=== PATIENT | male | born 1985 | race Caucasian/White ===

== ENCOUNTER 2020-08-18 16:24 | Emergency (ER) | payer MEDICAID, SELFPAY ==
--- NOTE | 2020-08-18 16:19 | ECG_ITS ---
APPROVED REPORT Exam: Resting ECG HR:99 bpm ECG Measurements Heart Rate 99 AXES ID 150 P 28 QRSd 88 QRS 16 QT 356 T 21 QTc 456 Conclusion Normal sinus rhythm Incomplete RBBB Normal ECG Electronically signed by : Fredy Martinez, 08/20/2020 14:24:49
[2020-08-18 16:25] VITALS: BP 152/95; PULSE 104; RESP 18; TEMP 36.6; O2SAT 98; BMI 41.8
--- NOTE | 2020-08-18 16:26 | HMH.EDGENADL ---
ED Disposition Clinical Impression: Left against medical advice, Atypical chest pain Disposition: Left Against Medical Advice Condition on Discharge: Good Referrals: PCP,No [Primary Care Provider] - - Critical Care Critical Care Time: No Attestation: On , the high probability of a clinically significant, sudden or life threatening deterioration of the following system(s) required my full and direct attention, intervention and personal management. The time I documented below is in addition to time spent performing reported procedures but includes the following listed in this critical care notation. Medical Decision Making - Medical Records Medical records reviewed: Yes: I reviewed the patient's medical records. - Thierno Inquiry Pt receiving controlled substance: No Vital Signs: 08/18/20 16:25 08/18/20 16:46 Temperature 98 F 98 F Temperature Source Oral Oral Pulse Rate 104 H Pulse Rate [Radial] 104 H Respiratory Rate 18 20 Blood Pressure 156/92 H Blood Pressure [Right Arm] 152/95 H Blood Pressure Mean [Right Arm] 114 Blood Pressure Position Sitting Blood Pressure Position [Right Arm] Sitting 02 Sat by Pulse Oximetry 98 Oxygen Delivery Method Room Air Room Air - Lab Data Lab results reviewed: Yes: I reviewed the patient's lab results. Orders (Tests/Meds): ORDERS Category Date Time Status Chest XR 2 view (NOT portable) [XR chest 2V] Stat Exams 08/18/20 16:32 Ordered Basic Metabolic Panel Stat Lab 08/18/20 16:32 Ordered Complete Blood Count Auto Diff Stat Lab 08/18/20 16:32 Ordered Troponin I Stat Lab 08/18/20 16:32 Ordered - ECG Data Tracing #1 EKG interpreted by Abram Wilkinson MD: Rhythm: sinus Rate: 99 [place]: normal Ectopy: none Conduction: normal ST Segment Changes: none T Wave Changes: none Q Waves: none No evidence of acute ischemia or injury Normal electrocardiogram - MARJORIE Score for Non-Stemi Age of Patient: 30-39 years old Heart Rate: 90-109 bpm Systolic Blood Pressure: 140-159 mmHg CHF [place] Class: I-No CHF Other Risk Factors: None Medical Decision Narrative: Heart Pathway Score is: 1 Low Risk Recommended approach: Repeat troponin and if negative outpatient follow-up I recommended emergency department chest pain work-up including EKG, chest x-ray, blood work including initial and 3-hour troponin. Patient initially was agreeable. However apparently when x-ray came to take his x-ray he decided that he did not want to stay any longer in the emergency department or undergo any further work-up and signed out AGAINST MEDICAL ADVICE. General Adult HPI - General Chief complaint: Chest Pain Stated complaint: chest pain Time Seen by Provider: 08/18/20 16:27 - History of Present Illness HPI narrative: Patient states that he coughed this morning, says that he has a smoker's cough, and afterwards began having chest pain of his sternal area. He says it has persisted all day long but went away completely on the way over here and he is completely pain-free now. He says the pain has been worse for couple of hours, which is why he decided to come to the emergency room. He says the pain seemed to be worse when he would move around, and sometimes when he would take a breath. Denies any recent illness, no cough other than his usual smoker's cough, no fever, no hemoptysis. No recent travel, surgery, or hospitalization. He does not have any known coronary artery disease. He is a smoker. He does not have diabetes, hypertension, hyperlipidemia, or family history of coronary artery disease. - Related Data Home Medications Medication Instructions Recorded Confirmed No Known Home Medications 08/18/20 08/18/20 Allergies Allergy/AdvReac Type Severity Reaction Status Date / Time No Known Allergies Allergy Verified 10/30/19 16:38 [facility] History - Hepatitis A Screen Attestation statement:: This patient has been screened for Hepatitis A ri
--- NOTE | 2020-08-18 16:45 | PC.NURSE ---
PT STATES HE WOULD LIKE TO LEAVE. PT SIGNED AMA
[2020-08-18 16:46] VITALS: BP 156/92; PULSE 104; RESP 20; TEMP 36.6; O2SAT 98
--- NOTE | 2020-08-18 23:03 | PC.NURSE ---
spoke with edwin; she was concerned she had a missed call from the hospital number; advised it wasn't the current er staff, and advised patient if she needed anything further, we would welcome the patient back to the ed if he needed us. very appreciative and advised patient was ok .
== END 2020-08-18 16:50 | disposition left against medical advice (07) ==
PROVIDERS: Emergency Provider Emergency Medicine; PCP Nurse Practitioner Family
DX: R07.89 Other chest pain (principal); F17.210 Nicotine dependence, cigarettes, uncomplicated
CPT/HCPCS: 93005; 99281

== ENCOUNTER 2024-10-01 13:10 | Inpatient (IN) | payer MEDICAID, SELFPAY ==
[2024-10-01] VITALS (10 sets, daily range): BP systolic 139–167; BP diastolic 57–77; PULSE 108–131; RESP 16–18; TEMP 36.6–37.1; O2SAT 95–99; BMI 57.6; BMI 56.2
--- NOTE | 2024-10-01 13:45 | XR_ITS ---
PROCEDURE INFORMATION: Exam: XR Chest Exam date and time: 10/01/2024 1:59 PM Age: 38 years old Clinical indication: Shortness of breath; Additional info: Dyspnea TECHNIQUE: Imaging protocol: Radiologic exam of the chest. Views: 1 view. COMPARISON: No relevant prior studies available. FINDINGS: Lungs: No evidence of focal airspace consolidation, noting low lung volumes limits evaluation of the lung bases. No pulmonary edema. Pleural spaces: No visible pleural effusion. No pneumothorax. Heart/Mediastinum: Cardiomediastinal silouhette is within normal limits. Bones/joints: No evidence of acute osseous abnormality. IMPRESSION: No evidence of acute cardiopulmonary disease.
--- NOTE | 2024-10-01 13:55 | ECG_ITS ---
APPROVED REPORT Exam: Resting ECG HR:125 bpm ECG Measurements Heart Rate 125 AXES QRSd 101 QRS 56 QT 344 T 46 QTc 418 Conclusion SUPRAVENTRICULAR TACHYCARDIA LOW QRS VOLTAGE IN PRECORDIAL LEADS [QRS DEFLECTION < 1.0 mV IN CHEST LEADS] POSSIBLE INFERIOR MYOCARDIAL INFARCTION , OF INDETERMINATE AGE [30 ms Q WAVE IN II/aVF] ABNORMAL ECG UNCONFIRMED REPORT Electronically signed by : ADELINA DEMPSEY, 10/02/2024 23:11:44
[2024-10-01 14:01] LABS: Basophils % 0.6 % (0.1-2.0); Eosinophils # 0.1 K/mm3 (0.0-0.4); Eosinophils % 1.4 % (0.1-12.0); Hematocrit 37.2 % (42.0-52.0); Hemoglobin 12.7 g/dL (14.1-18.0); Lymphocytes # 1.7 K/mm3 (0.7-4.5); Mean Corpuscular HGB Conc 34.2 g/dL (31.8-35.4); Mean Corpuscular Hemoglobin 34.3 pg (27.0-31.2); Mean Corpuscular Volume 100.3 fl (80-94); Mean Platelet Volume 9.4 fl (7.4-10.4); Monocytes # 0.5 K/mm3 (0.1-1.0); Neutrophils # 3.5 K/mm3 (1.8-7.8); Platelet Count 93 K/mm3 (142-424); Red Cell Distribution Width 16.7 % (11.5-17.5); White Blood Count 5.8 K/mm3 (4.8-10.8)
--- NOTE | 2024-10-01 14:06 | ED_ITS ---
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 by RN): Patient reports seeing his PCP at [facility] yesterday for increased fluid in his legs, hands and abdomen. States she recommended he come to the ER yesterday but stated they couldn't come until today. Does report increased shortness of breath. Denies any other symptoms. History of Present Illness HPI narrative: Patient is a 38-year-old male presenting today with I am all swelled up. He has a history of chronic hepatitis C which was diagnosed a decade ago after injection drug use but has been clean for nearly a decade and has been told in the past that he was not a candidate for hep C treatment therefore he has not been treated and is chronically viremic to his knowledge. He is never been diagnosed with liver disease heart failure heart disease kidney disease etc. States that he believes that he is up 75 pounds from 350 pounds to 425 pounds. Related Data Home Medications ?Medication ?Instructions ?Recorded ?Confirmed No Known Home Medications 08/18/20 08/18/20 Allergies Allergy/AdvReac Type Severity Reaction Status Date / Time No Known Allergies Allergy Verified 10/30/19 16:38 [facility] Disclaimer: The information contained in this section may have been updated after the patient was seen, as this information can be updated by other users. Social History Smoking Status: Current every day smoker tobacco type: cigarettes packs per day: 2 alcohol intake: never current occupational status: other household members: other housing: other Other Medical History Have you received the Flu Vaccine for this season: No Have you received the Pneumonia Vaccine: No ROS Obtained: Yes All systems reviewed & no additional complaints except as documented Physical Exam General General appearance: alert and in no apparent distress Respiratory Respiratory exam: Present other (Diminished breath sounds) Cardiovascular Cardiovascular exam: Present tachycardia Abdominal Exam Abdominal exam: Present distention (Morbidly obese severely distended abdomen with abdominal wall edema) Extremities Exam Extremities exam: Present other (Diffuse whole body wall edema in the presacral region abdominal wall extremities etc.) Neurological Exam Neurological exam: Present alert and oriented X3 Medical Decision Making Medical Records Screening: Per USPSTF and CDC recommendations, given the prevalence of disease in our region, it is our hospital?s policy to screen for HIV and viral Hepatitis for all patients aged 18 and over and those with ongoing risk factors. Thierno Inquiry Pt receiving controlled substance: No Vital Signs: 10/01/24 13:11 10/01/24 13:45 Temperature 98.2 F Temperature Source Oral Pulse Rate 131 H Pulse Rate [Radial] 125 H Respiratory Rate 18 Blood Pressure [Right Arm] 167/70 H Blood Pressure Mean [Right Arm] 102 Blood Pressure Source [Right Arm] Automatic Cuff Blood Pressure Position [Right Arm] Sitting 02 Sat by Pulse Oximetry 96 96 Oxygen Delivery Method Room Air Room Air Lab Data Lab results reviewed: Yes I reviewed the patient's lab results. Lab Results 10/01/24 13:40: WBC 5.8, RBC 3.70 L, Hgb 12.7 L, Hct 37.2 L, MCV 100.3 H, MCH 34.3 H, MCHC 34.2, RDW 16.7, Plt Count 93 L, MPV 9.4, Neut % (Auto) 60.0, Lymph % (Auto) 29.0, [place] % (Auto) 9.0, Eos % (Auto) 1.4, Baso % (Auto) 0.6, Neut # (Auto) 3.5, Lymph # (Auto) 1.7, [place] # (Auto) 0.5, Eos # (Auto) 0.1, Baso # (Auto) 0.0, NT-Pro-B Natriuret Pep 54.8 10/01/24 14:04: PT 17.3 H, INR 1.62 H, Sodium 131 L, Potassium 3.2 L, Chloride 93 L, Carbon Dioxide 34 H, Anion Gap 7.2, BUN 6 L, Creatinine 0.70, Estimated Creat Clear 156, Estimated GFR 126, Est GFR ( Amer) 152, Glucose 113 H, C alcium 7.9 L, Total Bilirubin 4.1 H, AST 165 H, ALT 52, Alkaline Phosphatase 251 H, Troponin I 0.02, Total Protein 7.2, Albumin 2.5 L, Globulin 4.7 H, A lbumin/Globulin Ratio 0.5 L, TSH 3.72 10/01/24 13:40 10/01/24 14:04 Orders (Tests/Meds): ED MEDICATIONS Generic Name Dose Route Start Last Admin Trade Name Freq PRN Reason Stop Dose Admin Bumetanide 10 mg/ Sodium 100 mls @ 5 mls/hr 10/01/24 15:16 Chloride IV 10/31/24 15:15 .Q20H CECE Discontinued Medications Generic Name Dose Route Start Last Admin Trade Name Freq PRN Reason Stop Dose Admin Bumetanide 2 mg 10/01/24 15:15 Bumetanide 1mg/4ml Vial IV 10/01/24 15:16 ONCE ONE ORDERS Category Date Time Status Consult Appellate Conferee [CONS] Routine Cons 10/01/24 14:30 Active CXR --portable [XR chest portable] Stat Exams 10/01/24 13:45 Completed POCUS Point of Care (ER Only) Stat Exams 10/01/24 14:04 Completed BNP [NT Pro Brain Natriuretic Pep.] Stat Lab 10/01/24 13:40 Completed CBC w/Auto Diff [Complete Blood Count Auto Diff] Stat Lab 10/01/24 13:40 Completed CMP [Comprehensive Metabolic Panel] Stat Lab 10/01/24 14:04 Completed Complete Blood Count Auto Diff AMLAB Lab 10/02/24 06:00 Ordered Comprehensive Metabolic Panel AMLAB Lab 10/02/24 06:00 Ordered HCV RNA PCR, Quant Stat Lab 10/01/24 14:04 Received HIV (1&2) Antibody Rapid Stat Lab 10/01/24 14:04 Received Lipid Panel AMLAB Lab 10/02/24 06:00 Ordered Magnesium AMLAB Lab 10/02/24 06:00 Ordered PT INR [Prothrombin Time INR] Stat Lab 10/01/24 14:04 Completed TSH [Thyroid Stimulating Hormone] Stat Lab 10/01/24 14:04 Completed Trop I [Troponin I] Stat Lab 10/01/24 14:04 Completed Troponin I Q3H Lab 10/01/24 17:00 Ordered Troponin I Q3H Lab 10/01/24 20:00 Ordered UA [Urinalysis and Microscopic] Stat Lab 10/01/24 13:46 Ordered Medical Decision Narrative: Patient is a morbidly obese 38-year-old male with a history of chronic hepatitis C that was never treated presenting today with whole body edema highly concerning for decompensated cirrhosis. Other things in the differential would be protein-losing enteropathy nephrotic syndrome kidney disease heart failure etc. Workup is pending bedside ultrasound did in fact demonstrate that he has cirrhosis. Reassessment 239 patient has an albumin of 2.5 and INR 1.6 consistent with synthetic dysfunction of the liver in addition to AST is 165 and platelets are 93 he has a fib 4 score of 9.6 in the setting of ascites and anasarca this is all consistent with a new diagnosis of decompensated cirrhosis likely secondary hepatitis C. I will discuss the case with our consulting it architect to see if he is comfortable keeping the patient here. Primarily from an acute standpoint patient has significant volume overloaded state but will be tenuous from a diuretic standpoint and require intensive monitoring regarding his kidneys etc thus requiring hospitalization. He remains tachycardic. After my discussion with Dr. Kramer I will make a disposition decision to keep the patient here at [facility] or transfer the patient. I spoke with Dr. Kramer our consulting it architect who is comfortable keeping the patient here is immediately available for a phone call if our hospital medicine doctor is comfortable keeping the patient here. I subsequently spoke with Dr. Gomez awaiting a callback. No evidence of SBP from a clinical standpoint or evidence of upper GI bleed. Dr. Kramer did request if possible to get imaging of the patient's belly to see to what extent he has portal hypertension and/or to see if he has hepatocellular carcinoma. Dr. Gomez returned my call and we will keep the patient here for further evaluation and management Dr. Kramer is immediately available and is aware of this patient being admitted as well and will closely follow along. Procedures Miscellaneous Procedure Procedure Performed: Limited abdominal ultrasound Indication whole body wall edema history of hepatitis C evaluating for possible ascites Findings there is extensive abdominal wall edema as well as ascites noted Interpretation patient does have evidence of ascites which is nonspecific but in the setting of hepatitis C is likely from decompensated cirrhosis Images were saved Critical Care Critical Care Time Critical Care Time: Yes Attestation: On 10/01/24, the high probability of a clinically significant, sudden or life threatening deterioration of the following system(s) required my full and direct attention, intervention and personal management. The time I documented below is in addition to time spent performing reported procedures but includes the following listed in this critical care notation. Total Time Total Critical Care Time: 35
[2024-10-01 14:17] LABS: NT Pro Brain Natriuretic Pep. 54.8 pg/mL (0-125)
[2024-10-01 14:21] LABS: INR 1.62 (0.9-1.1); Prothrombin Time 17.3 seconds (10.1-12.5)
[2024-10-01 14:23] LABS: Albumin Level 2.5 g/dl (3.5-5.0); Chloride 93 mmol/L (98-107); Potassium 3.2 mmoL/L (3.5-5.1); Sodium 131 mmol/L (136-145)
[2024-10-01 14:25] LABS: Blood Urea Nitrogen 6 mg/dl (9-20); Creatinine Clearance Estimated 156 mL/min (50-200); Estimated Glomerular Filt Rate 126 ml/min (>60); GFR (African American) 152 ML/MIN (>60)
[2024-10-01 14:26] LABS: Alanine Aminotransferase 52 U/L (12-78); Albumin/Globulin Ratio 0.5 (1.1-1.8); Alkaline Phosphatase 251 U/L (38-126); Anion Gap 7.2 mEq/L (5-15); Aspartate Amino Transferase 165 U/L (17-59); Bilirubin,Total 4.1 mg/dl (0.2-1.3); Calcium 7.9 mg/dl (8.4-10.2); Carbon Dioxide 34 mmol/L (22.0-30.0); Globulin 4.7 g/dL (1.3-3.2); Glucose 113 mg/dl (74-100); Total Protein,Serum 7.2 g/dl (6.3-8.2)
[2024-10-01 14:37] LABS: Troponin I 0.02 ng/ml (0.00-0.034)
[2024-10-01 14:56] LABS: Thyroid Stimulating Hormone 3.72 uIU/mL (0.465-4.68)
--- NOTE | 2024-10-01 15:17 | P.HP_ITS ---
History of Present Illness *Admission Date: 10/01/24 *Reason for visit:: Abdominal swelling and edema *History of present illness: Mr. Justice is a 38-year-old male with longstanding history of hepatitis C for approximately 10 years. He is untreated. He presented today to the ER due to worsening swelling in his legs and abdomen. States has been having increased swelling over the past 1 to 2 months. He had swelling in his ankles for years but not to the point that it is at at this time. Over the past 1 to 2 months he has gained a little over 70 pounds of fluid per his report. States he short of breath with exertion. Denies any chest pain, nausea, confusion, diarrhea. Urinating at baseline. Having daily bowel movements. Reports history of IV drug use, last used 11 years ago. Has been on Suboxone legitimately and illicitly. Most recently due to loss of insurance, has been buying Suboxone off the street taking 4 to 8 mg daily. Denies any illicit drugs. Smokes a pack a day. Drinks a few times a week. On workup in the ER, found to be in decompensated cirrhosis with significant edema, elevated INR. Medicine and GI consulted for admission and further management. On arrival to the floor, patient is sitting upright in bedside chair. In no acute distress. Morbidly obese. Significant edema on exam up to abdomen. Afebrile. Alert and oriented x 4. [facility] Disclaimer: The information contained in this section may have been updated after the patient was seen, as this information can be updated by other users. Medical History Inguinal hernia Family History Other Family history of diabetes mellitus type II Social History Smoking Status: Current every day smoker tobacco type: cigarettes packs per day: 2 alcohol intake: never current occupational status: other Travel in the last 8 weeks: None household members: other housing: other Other Medical History Have you received the Flu Vaccine for this season: No Have you received the Pneumonia Vaccine: No Review of Systems Review of Systems Review of systems (narrative): 14 point review of systems performed, pertinent positives and negatives as per HPI Meds Home Medications and Allergies Home Medications ?Medication ?Instructions ?Recorded ?Confirmed ?Type No Known Home Medications 08/18/20 10/01/24 History New Prescriptions to Start Prescriptions: Allergies Allergy/AdvReac Type Severity Reaction Status Date / Time No Known Allergies Allergy Verified 10/30/19 16:38 Exam Data for Last 24 hours Vital signs and Labs for Last 24 Hours: Temp Pulse Resp BP Pulse Ox O2 Del Method 98.2 F 131 H 18 167/70 H 96 Room Air 10/01/24 13:11 10/01/24 13:45 10/01/24 13:11 10/01/24 13:11 10/01/24 13:45 10/01/24 13:45 Laboratory Results - last 24 hr 10/01/24 13:40: WBC 5.8, RBC 3.70 L, Hgb 12.7 L, Hct 37.2 L, MCV 100.3 H, MCH 34.3 H, MCHC 34.2, RDW 16.7, Plt Count 93 L, MPV 9.4, Neut % (Auto) 60.0, Lymph % (Auto) 29.0, [place] % (Auto) 9.0, Eos % (Auto) 1.4, Baso % (Auto) 0.6, Neut # (Auto) 3.5, Lymph # (Auto) 1.7, [place] # (Auto) 0.5, Eos # (Auto) 0.1, Baso # (Auto) 0.0, NT-Pro-B Natriuret Pep 54.8 10/01/24 14:04: PT 17.3 H, INR 1.62 H, Sodium 131 L, Potassium 3.2 L, Chloride 93 L, Carbon Dioxide 34 H, Anion Gap 7.2, BUN 6 L, Creatinine 0.70, Estimated Creat Clear 156, Estimated GFR 126, Est GFR ( Amer) 152, Glucose 113 H, Calcium 7.9 L, Total Bilirubin 4.1 H, AST 165 H, ALT 52, Alkaline Phosphatase 251 H, Troponin I 0.02, Total Protein 7.2, Albumin 2.5 L, Globulin 4.7 H, Albumin/Globulin Ratio 0.5 L, TSH 3.72 I & O for Last 24 hours: Intake & Output 09/28/24 09/29/24 09/30/24 10/01/24 23:59 23:59 23:59 23:59 Weight 192.777 kg Constitutional Constitutional: no acute distress, morbidly obese, chronically ill appearing and cooperative *Routine HEENT Exam Head: Present normocephalic Eye: Present EOMI and PERRL ENT: Present mucous membranes moist *Routine Neck Exam Neck: Present supple; Absent lymphadenopathy *Routine Respiratory Exam Respiratory: Present CTA bilaterally, crackles (Fine crackles in bases) and distant breath sounds; Absent respiratory distress, rhonchi or wheezes *Routine Cardiovascular Exam Cardiovascular: Present tachycardia Comments: Tachycardic, regular rhythm *Routine Abdominal Exam Abdominal: Present soft, normoactive bowel sounds and firm; Absent tenderness, rebound or guarding Comments: Distended abdomen, 2+ edema and abdominal wall *Routine Rectal Exam Rectal:: deferred *Routine Genitalia Exam Genitalia:: deferred *Routine Extremities Exam Extremities: Present edema (3+ edema through thighs up to abdomen); Absent cyanosis or clubbing *Routine Skin Exam Skin: Present intact and warm; Absent cyanosis, wounds or rash *Routine Neurological Exam Neurological: Present alert, oriented X3 and moving all extremities; Absent altered mental status or asterixis Assessment and Plan *Assessment and plan (1) 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): Status: Acute Category: Medical Code(s): B19.20 - Unspecified viral hepatitis C without hepatic coma; K74.69 - Other cirrhosis of liver (2) Tachycardia: Status: Acute Category: Medical Code(s): R00.0 - Tachycardia, unspecified (3) Chronic hepatitis C virus infection: Status: Acute Category: Medical Code(s): B18.2 - Chronic viral hepatitis C (4) Anasarca: Status: Acute Category: Medical Code(s): R60.1 - Generalized edema (5) Thrombocytopenia: Status: Acute Category: Medical Code(s): D69.6 - Thrombocytopenia, unspecified (6) Opioid use disorder: Status: Acute Category: Medical Code(s): F11.90 - Opioid use, unspecified, uncomplicated (7) Morbid obesity with BMI of 50.0-59.9, adult: Status: Acute Category: Medical Code(s): E66.01 - Morbid (severe) obesity due to excess calories; Z68.43 - Body mass index [BMI] 50.0-59.9, adult (8) Tobacco use disorder: Status: Acute Category: Medical Code(s): F17.200 - Nicotine dependence, unspecified, uncomplicated Plan 38-year-old male with decompensated cirrhosis. Presents with anasarca and dyspnea. Workup in the ER concerning for volume overload. Discussed case with ER physician, request admission for diuresis and further management of his cirrhosis. I agreed to admit. GI consulted. Discussed case, will aggressively diurese. Evaluate for initiation of treatment for his hepatitis C. Necessitating inpatient management. Anticipate admission greater than 2 midnights. Problems addressed as follows. Decompensated cirrhosis Hepatitis C Anasarca Thrombocytopenia -MELD 17, FIB4 = 9.6, INR 1.6. - Platelets 93; mild electrolyte disturbances with sodium 131, potassium 3.2, chloride 93. Kidney function normal with BUN 6, creatinine 0.7. -Bilirubin 4.1, AST 165, ALT 52, alk phos 251. Albumin low at 2.5. -Findings consistent with decompensated cirrhosis. Aggressive diuresis. Initiate spironolactone 100 mg daily. Bumex 2 mg once on admission, has already put out 1 L. Will continue 1 mg IV daily. -Aggressive replacement of electrolytes during diuresis. Electrolyte replacement protocol ordered -Repeat CBC, CMP, magnesium ordered for the morning -Blood pressure elevated at 140-160 systolic. Tachycardic 120-130. Appears to be sinus tach. Concern for secondary to withdrawal versus volume overload status. Will evaluate need for beta-dionicio initiation in the morning -Strict ins and outs -GI consulted, discussed case on admission. Diuresis as above. Will need to initiate treatment for hepatitis C, consider prior to discharge home. Address decompensation first. -Ammonia, AFP, hep C RNA pending -Will proceed with imaging this weekend of abdomen including CT of abdomen to evaluate liver architecture and for varices. -Phytonadione 10 mg once for coagulopathy, repeat INR in the morning Opioid use disorder: Reports history of IV drug use. Has not used in 11 years. Off and on Suboxone. Having mild withdrawal symptoms with tachycardia. Last used Suboxone yesterday with 1/2 tablet. Will initiate 8 mg / 2 mg Suboxone daily. Monitor for improvement in symptoms. Peers port specialist can. Anticipate referral to outpatient treatment at discharge Morbid obesity complicates all aspects of his care Tobacco use disorder: Nicotine patch 21 mg daily Full code Regular diet Holding anticoagulation in the setting of thrombocytopenia
--- NOTE | 2024-10-01 15:28 | PC.NURSE ---
HS aware of admission
[2024-10-01] MEDS: BUMETANIDE 1MG/4ML VIAL 2 MG IV (15:29)
[2024-10-01 15:31] LABS: Microscopic, Urine URINE MICROSCOPIC (MICROSCOPIC)
[2024-10-01 15:36] LABS: Appearance,Urine CLEAR (Clear); Blood, Urine 3+ (Negative); Color,Urine YELLOW (Yellow); Glucose,Urine (UA) Negative (Negative); Ketones,Urine Negative (Negative); Leukocyte Esterase,Urine Negative (Negative); Nitrate,Urine Negative (Negative); Protein,Urine Negative (Negative)
[2024-10-01 15:44] LABS: Bilirubin,Urine Negative (Negative)
[2024-10-01] MEDS: BUMETANIDE 10 MG in 0.9 % SODIUM CHLORIDE 60 ML 5 MG IV (15:49)
--- NOTE | 2024-10-01 15:54 | PC.NURSE ---
Report called to NIKIA Mullins on Med Surg.
[2024-10-01 15:57] LABS: Bacteria,Urine 1+ /lpf; RBC,Urine TNTC #/hpf (0-3); WBC,Urine Occasional #/hpf (0-3)
--- NOTE | 2024-10-01 16:02 | PC.NURSE ---
pt to 2nd floor with RN via wheelchair
--- NOTE | 2024-10-01 16:05 | PC.NURSE ---
arrived by w/c from ED
--- OUTSIDE RECORDS SUMMARY | 2024-10-01 16:15 | XMS_ITS | Continuity of Care Document ---
Author Organization [place] [facility] [employer] Address [address] [place] [address] Assessment Encounter Date Assessment Date Assessment LastModified by Organization Details LastModified Time 09/30/2024 09/30/2024 Instructed patient to go to ER for further evaluation of significant complaints and abnormal PE findings. He needs immediate work-up. He states he will go. Follow up in clinic subsequently. We will address concerns including BP, hep C, etc. at follow up. We may also consider MAT program if patient is agreeable. Not available 10/01/2024 10:14:24 Plan of Treatment Reminders Order Date Submit Date Provider Last Modified By Organization Details Last Modified Time Details Appointments None record ed. Lab None record ed. Referral None record ed. Procedures None record ed. Surgeries None record ed. Imaging None record ed. Medication Orders None record ed. Patient TargetsNo targets recorded. Patient Instructions Encounter Date Encounter Id Patient Instructions Last Modified By Organization Details Last Modified Time 09/30/2024 [id number] body mass index: care instructions Not available 10/01/2024 10:13:41 learning about healthy weight Not available 10/01/2024 10:13:41 jaundice: care instructions Not available 10/01/2024 10:13:41 Reason for Referral None Reported. Results Created Date Observation Date Name Description Value Unit Range Abnormal Flag Note LastModifiedBy Organization Detail LastModifiedTime 10/01/2010/01/2024 imagi ng/di avisos tic resul t No observ ation record ed. [email or web address] [facility] [address], [place], [address], 10/01/2024 15:27:38 Result Notes None recorded. Problems Name Problem SNOMED Code Status Onset Date Resolution Date Notes Provider Name and Address Organization Details Recorded Time 3+ pitting edema 113209380 Active 2023 DERRELL LAKE NP [address] [place] [address], [address] [place] [address] , [employer] 4 10:11:10 Dyspnea 402300540 Active 2023 DERRELL LAKE NP [address] [place] [address], [address] [place] [address] , [facility] [employer] 4 10:11:15 Elevated blood-press ure reading without diagnosis of hypertensio n 731767141 Active 2023 DERRELL LAKE NP [address] [place] [address], [address] [place] [address] , [facility] 4 10:11:21 Jaundice 87437614 Active 2023 DERRELL LAKE NP [address] [place] [address], [address] [place] [address] , [facility] 4 10:11:28 Abnormal weight gain 894772772 Active 2023 DERRELL LAKE NP [address] [place] [address], [address] [place] [address] , [employer] 4 10:12:13 Opioid dependence in remission 877480869 Active 2023 DERRELL LAKE NP [address] [place] [address], [address] [place] [address] , [employer] 4 10:14:04 Viral hepatitis C 00985127 Active 2019 Problem Code: B19.20; Problem Code Type: ICD-10; Not Available [facility] 2 21:14:20 Nicotine dependence 85683230 Active 2019 Problem Code: F17.200; Problem Code Type: ICD-10; Not Available [facility] 2 21:14:20 Psychoactiv e substance dependence 0707214 Active 2019 Problem Code: F19.21; Problem Code Type: ICD-10; Not Available [facility] 2 21:14:20 Body mass index 40+ - severely obese 832519503 Active 2019 Not Available [facility] 2 21:14:20 Problem Notes None recorded. Procedures Surgical History Date Name Laterality Status Provider Name and Address Organization Details Recorded Time 0 hernia repair completed Not Available [facility] 07/16/2022 22:56:33 Imaging Results None recorded. Procedure Notes None recorded. Medical Equipment None Reported. Allergies No known drug allergies Medications Name Sig Start Date Stop Date Status Note LastModified by Organization Details LastModified Time buprenorphi ne 8 mg-naloxone [address] 3/4 TABLET UNDER THE TONGUE AND ALLOW TO DISSOLVE 1 TIME EACH DAY. 09/30 completed Not Available Not Available Not Available Suboxone 09/30 completed Not Available Not Available Not Available Vitals Date Recorded Body height Body mass index (BMI) Body weight Heart rate Oxygen saturation Oxygen saturation in Arterial blood by Pulse oximetry Systolic blood pressure Diastolic blood pressure Systolic blood pressure Diastolic blood pressure Systolic blood pressure Diastolic blood pressure Provider Name and Address Organization Details Last Updated DateTime 4 182.88 cm 57.7 kg/m2 516725. 86 g 129 /min 95 % 95 % 153 mm[Hg] 88 mm[Hg] 157 mm[Hg] 81 mm[Hg] 148 mm[Hg] 80 mm[Hg] Skyestephanie Rossi [facility], [facility]. 4 15:53:33 Social History Question Answer Notes LastModified by Organizat ion Details LastModified Time Tobacco Smoking Status Current Every Day Smoker SocialHist oryQuestio n: 'Tobacco/A lcohol/Sup plements'; SocialHist oryRespons e: 'Current tobacco smoker (CAD, CAP, COPD, PV)1 (DM)4'; Not Available [facility] 07/16/2022 22:55:42 Do You Have An Advance Directive? No Information not available 09/30/2024 Is Your Home Air Conditioned? Yes [email or web address] Information not available 09/30/2024 What Is Your Level Of Alcohol Consumption? Occasional [email or web address] Information not available 09/30/2024 How Many Years Have You Consumed Alcohol? 2 [email or web address] Information not available 09/30/2024 Do You Wear A Helmet When Biking? Yes Information not available 09/30/2024 Are You Blind Or Do You Have Difficulty Seeing? No [email or web address] Information not available 09/30/2024 Are You Or Have You Been Involved With Bullying? No Information not available 09/30/2024 What Is Your Level Of Caffeine Consumption? Occasional [email or web address] Information not available 09/30/2024 In The 14 Days Before Symptom Onset, Have You Had Close Contact With A Laboratory-confir med COVID-19 While That Case Was Ill? No [email or web address] Information not available 09/30/2024 In The 14 Days Before Symptom Onset, Have You Had Close Contact With A Person Who Is Under Investigation For COVID-19 While That Person Was Ill? No Information not available 09/30/2024 Have You Been To An Area Known To Be High Risk For COVID-19? No [email or web address] Information not available 09/30/2024 Are You Currently Employed? No Information not available 09/30/2024 Are You Deaf Or Do You Have Serious Difficulty Hearing? No [email or web address] Information not available 09/30/2024 What Type Of Diet Are You Following? REGULAR [email or web address] Information not available 09/30/2024 How Many Days Of Moderate To Strenuous Exercise, Like A Brisk Walk, Did You Do In The Last 7 Days? 0 [email or web address] Information not available 09/30/2024 Have There Been Any Changes To Your Family Or Social Situation? No Information no t available 09/30/2024 Are There Any Guns Present In Your Home? No [email or web address] Information not available 09/30/2024 Which Of Your Hands Is Dominant? Right Information not available 09/30/2024 What Is Your Home Situation? Other Information not available 09/30/2024 Do You Have A Medical Power Of Enrollment Nurse? No Information not available 09/30/2024 What Was The Date Of Your Most Recent Tobacco Screening? 09/30/2024 Information not available 09/30/2024 Do You Have Any Pets? Yes Information not available 09/30/2024 What Is Your Relationship Status? Single [email or web address] Information not available 09/30/2024 Have You Repeated Any Grades? Yes [email or web address] Information not available 09/30/2024 Do You Use Your Seat Belt Or Car Seat Routinely? Yes Information not available 09/30/2024 Are You Sexually Active? No [email or web address] Information not available 09/30/2024 Do You Have Any Siblings? No [email or web address] Information not available 09/30/2024 Do You Have Smoke And Carbon Monoxide Detectors In Your Home? Yes [email or web address] Information not available 09/30/2024 Are You Passively Exposed To Smoke? Yes [email or web address] Information no t available 09/30/2024 Are There Any Smokers In Your House? No [email or web address] Information not available 09/30/2024 How Much Tobacco Do You Smoke? 0.5 PPD [email or web address] Information not available 09/30/2024 Do You Participate In Social [email or web address]? Yes Information not available 09/30/2024 Do You Feel Stressed (tense, Restless, Nervous, Or Anxious, Or Unable To Sleep At Night)? CA4947-5 [email or web address] Information not available 09/30/2024 Do You Use Any Illicit Or Recreational Drugs? No [email or web address] Information not available 09/30/2024 Do You Use Sunscreen Routinely? No [email or web address] Information not available 09/30/2024 Has Tobacco Cessation Counseling Been Provided? No Information not available 09/30/2024 Have You Recently Traveled Abroad? No Information not available 09/30/2024 Are You Currently In School? No [email or web address] Information not available 09/30/2024 Do You Have Any Dietary Restrictions? No [email or web address] Information not available 09/30/2024 Do You Or Have You Ever Used Any Other Forms Of Tobacco Or Nicotine? No Information not available 09/30/2024 Sex: Male Functional Status Question Answer Note LastModified by Organizat ion Details LastModified Time Do you have difficulty walking or climbing stairs? No [email or web address] Information not available 09/30/2024 Do you have transportation difficulties? No [email or web address] Information not available 09/30/2024 Are you able to walk? YESWOREST [email or web address] Information not available 09/30/2024 Do you have difficulty doing errands alone? No [email or web address] Information not available 09/30/2024 Are you able to care for yourself? Yes [email or web address] Information n ot available 09/30/2024 Do you have difficulty dressing or bathing? No [email or web address] Information not available 09/30/2024 What is your exercise level? Occasional Information not available 09/30/2024 Mental Status Question Answer Note LastModified by Organization D etails LastModified Time Do you have difficulty concentrating, remembering or making decisions? No [email or web address] Information no t available 09/30/2024 Family History Nothing Reported Notes:*Procedure Description : Documented family medical history in mother*Relative: Mother *Procedure Description: Documented family medical history in father*Relative: Father *Procedure Description: Family medical history unremarkable*Relative: Unspecified Relation *Problem: Relative: ''; Medical History Condition Response Hospitalizations N Hepatitis Y Acid Reflux (GERD) Y Emergency room visit since last appointm ent. N Hypertension Y Immunizations Vaccine Type Date Status Provider Name and Address Organization Details Recorded Time MMR 06/03/1997 completed DERRELL LAKE NP [address] [place], [address], [employer] 09/30/2024 16:09:55 Tdap 12/25/2010 scott LAKE NP [address] [place], [address], [facility] [employer] 09/30/2024 16:09:55 Hep B, adolescent/high risk 06/03/1997 scott LAKE NP [address] [place], [address], [employer] 09/30/2024 16:09:55 Hep B, adolescent/high risk infant 07/06/1997 completed DERRELL LAKE NP [address] [place], [address], [employer] 09/30/2024 16:09:56 Past Encounters Encounter ID Performer Location Encounter Start Date Encounter Closed Date Diagnosis/Indication Diagnosis SNOMED-CT Code Diagnosis ICD10 Code [id number] DERRELL LAKE NP [address] [address] 09/30/2024 15:34:10 10/01/2024 10:59:29 3+ pitting edema 934955789 R60.9 Dyspnea 619320689 R06.00 Elevated blood-pressure reading without diagnosis of hypertension 940565898 R03.0 Jaundice 84241283 R17 Abnormal weight gain 161 856957 R63.5 History of hepatitis C 1860094588 9101 Z86.19 Body mass index 40+ - severely obese 038769973 Z68.43 Opioid dep endence in remission 757287741 F11.21 Health Concerns Section Related Observation LastModified by Organization Detai ls LastModified Time None Recorded Concern Status LastModified by Organization Details LastModified Time None Recorded Payers Encounter Date Sequence Insurance Name Policy Number Policy Farr Covered Member ID Farr Member ID Guarantor Name 09/30/2024 1 [employer] (MEDICAID HMO) Quinton Vinh [id number] Quinton Justice Notes Date Note Type Note Provider Name and Address Organization Details Recorded Time 09/30/2024 text/html Patient presents to establish care and discuss some concerns. Works for [employer] seasonally.Has never been diagnosed HTN. Has not seen PCP in many years. No other medical history. States he does not go to suboxone clinic anymore so he has been taking suboxone off the street. States he has been on suboxone for 7 years. History of opioid dependence. Did use IV drugs in the past. Positive for Hep C in past. States he has been referred in the past but he has never had treatment.States that he has been having a lot of swelling in his legs for the last 2-3 weeks. States it just keeps getting worse. He has had some shortness of breath as well. States he used to weigh around 370 and has gained about 45 lbs in the last month. No weeping but pitting edema. No lower leg pain. He has also noticed swelling to inner thighs as well.Current smoker 1.5 ppd x 20 yrs. DERRELL LAKE NP [address] [facility], [place], [address], [facility] [employer] 10/01/2024 10:14:57
--- OUTSIDE RECORDS SUMMARY | 2024-10-01 16:15 | XMS_ITS | Data Portability ---
Author Organization [place] - [employer] Address [address] [place] [address] Assessment Encounter Date Assessment Date Assessment LastModified [...] By Organization Details Last Modified Time 09/30/2024 [id number] body mass index: care instructions Not available 10/01/2024 10:13:41 learning about healthy weight Not available 10/01/2024 10:13:41 jaundice: care instructions Not available 10/01/2024 10:13:41 Reason for Referral None Reported. Results Created Date Observation Date Name Description Value Unit Range Abnormal Flag Note LastModifiedBy Organization Detail LastModifiedTime 10/01/2010/01/2024 imagi ng/di agnos tic resul t No observ ation record ed. [email or web address] [facility] [address], [place], [address], 10/01/2024 15:27:38 Result Notes None recorded. Problems Name Problem SNOMED Code Status Onset Date Resolution Date Notes Provider Name and Address Organization Details Recorded Time 3+ pitting edema 217133181 Active 2023 DERRELL LAKE NP [address] [place] [address], [address] [place] [address] , [employer] 4 10:11:10 Dyspnea 576362834 Active 2023 DERRELL LAKE NP [address] [place] [address], [address] [place] [address] , [employer] 4 10:11:15 Elevated blood-press ure reading without diagnosis of hypertensio n 903972859 Active 2023 DERRELL LAKE NP [address] [place] [address], [address] [place] [address] , [employer] 4 10:11:21 Jaundice 45063632 Active 2023 DERRELL LAKE NP [address] [place] [address], [address] [place] [address] , [employer] 4 10:11:28 Abnormal weight gain 280028273 Active 2023 DERRELL LAKE NP [address] [place] [address], [address] [place] [address] , [employer] 4 10:12:13 Opioid dependence in remission 685921162 Active 2023 DERRELL LAKE NP [address] [place] [address], [address] [place] [address] , [employer] 4 10:14:04 Viral hepatitis C 97775707 Active 2019 Problem Code: B19.20; Problem Code Type: ICD-10; Not Available [facility] 2 21:14:20 Nicotine dependence 90604688 Active 2019 Problem Code: F17.200; Problem Code Type: ICD-10; Not Available [facility] 2 21:14:20 Psychoactiv e substance dependence 7667524 Active 2019 Problem Code: F19.21; Problem Code Type: ICD-10; Not Available [facility] 2 21:14:20 Body mass index 40+ - severely obese 077345862 Active 2019 Not Available [facility] 2 21:14:20 Problem Notes None recorded. Procedures Surgical History Date Name Laterality Status Provider Name and Address Organization Details Recorded Time 0 hernia repair completed Not Available [facility] 07/16/2022 22:56:33 Imaging Results Imaging Date Name Status LastModified by Organiz ation Details LastModified Time 10/01/2024 imaging/diagn ostic result active [email or web address] [facility] [address], [place], [place], [address], 10/01/2024 15:27:38 Procedure Notes None recorded. Medical Equipment None [...] Updated DateTime 4 182.88 cm 57.7 kg/m2 518658. 86 g 129 /min 95 % 95 % 153 mm[Hg] 88 mm[Hg] 157 mm[Hg] 81 mm[Hg] 148 mm[Hg] 80 mm[Hg] [facility] [employer] - [employer] 4 15:53:33 Social History Question Answer Notes LastModified by Organizat ion Details LastModified Time Tobacco Smoking Status Current Every Day Smoker SocialHist oryQuestio n: 'Tobacco/A lcohol/Sup plements'; SocialHist oryRespons e: 'Current tobacco smoker (CAD, CAP, COPD, PV)1 (DM)4'; Not Available [facility] 07/16/2022 22:55:42 Do You Have An Advance Directive? No [email or web address] Information not available 09/30/2024 Is Your Home Air Conditioned? Yes [email or web address] Information not available 09/30/2024 What Is Your Level Of Alcohol Consumption? Occasional Information not available 09/30/2024 How Many Years Have You Consumed Alcohol? 2 [email or web address] Information not available 09/30/2024 Do You Wear A Helmet When Biking? Yes [email or web address] Information not available 09/30/2024 Are You Blind Or Do You Have Difficulty Seeing? No Information not available 09/30/2024 Are You Or Have You Been Involved With Bullying? No [email or web address] Information not available 09/30/2024 What Is Your Level Of Caffeine Consumption? Occasional [email or web address] Information not available 09/30/2024 In The 14 Days Before Symptom Onset, Have You Had Close Contact With A Laboratory-confir med COVID-19 While That Case Was Ill? No [email or web address] Information not available 09/30/2024 In The 14 Days Before Symptom Onset, Have You Had Close Contact With A Person Who Is Under Investigation For COVID-19 While That Person Was Ill? No [email or web address] Information not available 09/30/2024 Have You Been To An Area Known To Be High Risk For COVID-19? No [email or web address] Information not available 09/30/2024 Are You Currently Employed? No Information not available 09/30/2024 Are You Deaf Or Do You Have Serious Difficulty Hearing? No Information not available 09/30/2024 What Type Of Diet Are You Following? REGULAR [email or web address] Information not available 09/30/2024 How Many Days Of Moderate To Strenuous Exercise, Like A Brisk Walk, Did You Do In The Last 7 Days? 0 [email or web address] Information not available 09/30/2024 Have There Been Any Changes To Your Family Or Social Situation? No [email or web address] Information no t available 09/30/2024 Are There Any Guns Present In Your Home? No [email or web address] Information not available 09/30/2024 Which Of Your Hands Is Dominant? Right [email or web address] Information not available 09/30/2024 What Is Your Home Situation? Other Information not available 09/30/2024 Do You Have A Medical Power Of Education Diagnostician? No Information not available 09/30/2024 What Was The Date Of Your Most Recent Tobacco Screening? 09/30/2024 Information not available 09/30/2024 Do You Have Any Pets? Yes [email or web address] Information not available 09/30/2024 What Is Your Relationship Status? Single [email or web address] Information not available 09/30/2024 Have You Repeated Any Grades? Yes [email or web address] Information not available 09/30/2024 Do You Use Your Seat Belt Or Car Seat Routinely? Yes [email or web address] Information not available 09/30/2024 Are You Sexually Active? No [email or web address] Information not available 09/30/2024 Do You Have Any Siblings? No [email or web address] Information not available 09/30/2024 Do You Have Smoke And Carbon Monoxide Detectors In Your Home? Yes [email or web address] Information not available 09/30/2024 Are You Passively Exposed To Smoke? Yes [email or web address] Information no t available 09/30/2024 Are There Any Smokers In Your House? No [email or web address] Information not available 09/30/2024 How Much Tobacco Do You Smoke? 0.5 PPD [email or web address] Information not available 09/30/2024 Do You Participate In Social Media? Yes [email or web address] Information not available 09/30/2024 Do You Feel Stressed (tense, Restless, Nervous, Or Anxious, Or Unable To Sleep At Night)? [id number] [email or web address] Information not available 09/30/2024 Do You Use Any Illicit Or Recreational Drugs? No Information not available 09/30/2024 Do You Use Sunscreen Routinely? No [email or web address] Information not available 09/30/2024 Has Tobacco Cessation Counseling Been Provided? No [email or web address] Information not available 09/30/2024 Have You Recently Traveled Abroad? No [email or web address] Information not available 09/30/2024 Are You Currently In School? No [email or web address] Information not available 09/30/2024 Do You Have Any Dietary Restrictions? No [email or web address] Information not available 09/30/2024 Do You Or Have You Ever Used Any Other Forms Of Tobacco Or Nicotine? No [email or web address] Information not available 09/30/2024 Sex: Male Functional Status Question Answer Note LastModified by Organizat ion Details LastModified Time Do you have difficulty walking or climbing stairs? No [email or web address] Information not available 09/30/2024 Do you have transportation difficulties? No [email or web address] Information not available 09/30/2024 Are you able to walk? YESWOREST [email or web address] Information not available 09/30/2024 Do you have difficulty doing errands alone? No [email or web address] Information not available 09/30/2024 Are you able to care for yourself? Yes [email or web address] Information n ot available 09/30/2024 Do you have difficulty dressing or bathing? No [email or web address] Information not available 09/30/2024 What is your exercise level? Occasional [email or web address] Information not available 09/30/2024 Mental Status Question Answer Note LastModified by Organization D etails LastModified Time Do you have difficulty concentrating, remembering or making decisions? No [email or web address] Information no t available 09/30/2024 Family History Nothing Reported Notes:*Procedure Description : Documented family medical history in mother*Relative: Mother *Procedure Description: Documented family medical history in father*Relative: Father *Procedure Description: Family medical history unremarkable*Relative: Unspecified Relation *Problem: Relative: ''; Medical History Condition Response Emergency room visit since last appointm ent. N Acid Reflux (GERD) Y Hospitalizations N Hepatitis Y Hypertension Y Immunizations Vaccine Type Date Status Provider Name and Address Organization Details Recorded Time MMR 06/03/1997 completed DERRELL LAKE NP [address] [place], [address], [employer] 09/30/2024 16:09:55 Tdap 12/25/2010 scott LAKE NP [address] [place], [address], [employer] 09/30/2024 16:09:55 Hep B, adolescent/high risk 06/03/1997 scott LAKE NP [address] [place], [address], [employer] 09/30/2024 16:09:55 Hep B, adolescent/high risk 07/06/1997 scott LAKE NP [address] [place], [address], [employer] 09/30/2024 16:09:56 Past Encounters Encounter ID Performer Location Encounter Start Date Encounter Closed Date Diagnosis/Indication Diagnosis SNOMED-CT Code Diagnosis ICD10 Code [id number] DERRELL LAKE NP [address] [address] 09/30/2024 15:34:10 10/01/2024 10:59:29 3+ pitting edema 606713294 R60.9 Dyspnea 097434798 R06.00 Elevated blood-pressure reading without diagnosis of hypertension 791118064 R03.0 Jaundice 91455015 R17 Abnormal weight gain 161 719800 R63.5 History of hepatitis C 1011194410 9101 Z86.19 Body mass index 40+ - severely obese 010371194 Z68.43 Opioid dep endence in remission 255737587 F11.21 Health Concerns Section Related Observation LastModified by Organization Detai ls LastModified Time None Recorded Concern Status LastModified by Organization Details LastModified Time None Recorded Advance Directives Directive N: Payers Encounter Date Sequence Insurance Name Policy Number Policy Farr Covered Member ID Farr Member ID Guarantor Name 09/30/2024 1 [employer] (MEDICAID HMO) Quinton Justice [id number] Quinton Justice Notes Date Note Type Note Provider Name and Address Organization Details Recorded Time 09/30/2024 text/html Patient presents to establish care and discuss some concerns. Works for [employer] seasonally.Has never been diagnosed HTN. Has not [...] ppd x 20 yrs. DERRELL LAKE NP [address] [place] [address], [address], [facility] [employer] 10/01/2024 10:14:57
[2024-10-01 16:21] LABS: HIV (1&2) Antibody Rapid NONREACTIVE (NONREACTIVE)
--- NOTE | 2024-10-01 16:48 | PC.NURSE ---
PT EDUCATED ON THE NEED OFR HIM TO USE THE URINAL. HE STATES THAT HE GETS HIS SUBOXONE OFF THE STREET DUE TO NOT HAVING INSURANCE AND NOT BEING ABLE TO GO TO THE DOCTOR.
[2024-10-01 17:53] LABS: Troponin I 0.02 ng/ml (0.00-0.034)
[2024-10-01] MEDS: SPIRONOLACTONE 25MG TABLET 100 MG PO (17:59)
--- NOTE | 2024-10-01 18:12 | PEERSUPPORT ---
Peer Support Note Patient Information Patient Information: DOS:10/01/2024 ? Reason: Hx of JAMES/ED Ps consult ? Agreed to speak to ps with spouse at bedside. ? Pt shares briefly of his past with using drugs, he has been in long-term recovery for 10 years. He is now having issues with his liver from hep C. He is aware that Flo Linares will be admitting him to [facility]. ? He is forth coming about taking suboxone off the street for the last four months to maintain his sobriety due to insurance not being active and not able to afford outpatient clinic self-pay. He does plan to go back to the clinic when his insurance is active. ? Ps shared personal relevant stories to build rapport and understanding of these situations emphasising the effectiveness of the program offering mental health, medication/provider, case management, and support. ? Pt states he has been taking half of a 8mg/2mg Suboxone/Naloxone daily to manage. ? Ps acted as advocate to nurse requesting if the provider will prescribe him his suboxone while admitted to prevent withdrawal symptoms with planned re enrollment to outpatient program once discharged. ?
[2024-10-01] MEDS: PHYTONADIONE 10 MG in 0.9 % SODIUM CHLORIDE 50 ML 100 MG IV (19:08)
[2024-10-01 19:38] LABS: Magnesium 1.7 mg/dl (1.6-2.3)
[2024-10-01 20:03] LABS: Ammonia 42 umol/L (9-30)
[2024-10-01 20:16] LABS: Troponin I 0.02 ng/ml (0.00-0.034)
[2024-10-01] MEDS: PANTOPRAZOLE 40MG TABLET 40 MG PO (20:29)
[2024-10-01] MEDS: POTASSIUM CHLORIDE 20MEQ TAB 40 MEQ PO ×2 (20:29→23:10)
[2024-10-01] MEDS: MAGNESIUM SULFATE IN WATER 2 GM/50 ML PIGGYBACK IV ×2 (21:03→22:06)
[2024-10-02] VITALS (10 sets, daily range): BP systolic 131–154; BP diastolic 54–73; PULSE 74–120; RESP 16–19; TEMP 36.4–36.9; O2SAT 96–99; BMI 63.0; BMI 56.1
[2024-10-02 06:32] LABS: Basophils # 0.1 K/mm3 (0-0.2); Basophils % 1.3 % (0.1-2.0); Eosinophils # 0.1 K/mm3 (0.0-0.4); Eosinophils % 1.5 % (0.1-12.0); Hematocrit 36.7 % (42.0-52.0); Hemoglobin 12.2 g/dL (14.1-18.0); Lymphocytes % 25.6 % (10-50); Mean Corpuscular HGB Conc 33.3 g/dL (31.8-35.4); Mean Corpuscular Hemoglobin 33.7 pg (27.0-31.2); Mean Corpuscular Volume 101.1 fl (80-94); Mean Platelet Volume 8.1 fl (7.4-10.4); Monocytes # 0.4 K/mm3 (0.1-1.0); Monocytes % 9.9 % (1.7-9.3); Neutrophils # 2.5 K/mm3 (1.8-7.8); Neutrophils % 61.8 % (37.0-80.0); Platelet Count 80 K/mm3 (142-424); Red Blood Count 3.63 M/mm3 (4.60-6.20); Red Cell Distribution Width 16.8 % (11.5-17.5)
--- NOTE | 2024-10-02 06:44 | PC.NURSE ---
Pt has not voiced any complaints throughout the shift. Patient has remained in the chair throughout the night. at bedside. Electrolytes replaced per protocol. Bumex drip stopped at 1900. Room air. Sinus tach on tele. Uses urinal for measurement, patient had significant output at beginning of shift, but has slowed down toward the end of the shift, but still able to urinate. Call light in reach.
[2024-10-02 06:50] LABS: INR 1.56 (0.9-1.1); Prothrombin Time 16.7 seconds (10.1-12.5)
[2024-10-02 06:52] LABS: Alanine Aminotransferase 45 U/L (12-78); Albumin Level 2.3 g/dl (3.5-5.0); Albumin/Globulin Ratio 0.6 (1.1-1.8); Alkaline Phosphatase 235 U/L (38-126); Anion Gap 4.3 mEq/L (5-15); Aspartate Amino Transferase 137 U/L (17-59); Bilirubin,Total 4.2 mg/dl (0.2-1.3); Blood Urea Nitrogen 7 mg/dl (9-20); Calcium 7.6 mg/dl (8.4-10.2); Carbon Dioxide 38 mmol/L (22.0-30.0); Chloride 94 mmol/L (98-107); Chol/HDL Ratio 10.3 (1-3.5); Cholesterol 134 mg/dl (140-200); Creatinine Clearance Estimated 156 mL/min (50-200); Estimated Glomerular Filt Rate 126 ml/min (>60); GFR (African American) 152 ML/MIN (>60); Globulin 4.1 g/dL (1.3-3.2); Glucose 96 mg/dl (74-100); HDL Cholesterol 13 mg/dl (40-60); Magnesium 2.2 mg/dl (1.6-2.3); Potassium 3.3 mmoL/L (3.5-5.1); Sodium 133 mmol/L (136-145); Total Protein,Serum 6.4 g/dl (6.3-8.2); Triglycerides 112 mg/dl (30-150); VLDL Cholesterol 22 mg/dL (0-40)
[2024-10-02 07:02] LABS: Direct LDL Cholesterol 87.07 mg/dL (100-129)
--- NOTE | 2024-10-02 07:49 | EXP.ACUTE.PN ---
Subjective *Date: 10/02/24 *Time: 14:29 Interval history: Stable on room air overnight. -2 L since admission. Urinating/voiding appropriately. No active signs of bleeding. Tolerating p.o. intake. Ambulating independently. Medical Exam Vital signs and Labs for Last 24 Hours: Vital Signs Temp Pulse Pulse Pulse Resp BP BP 10/02/24 06:44 10/02/24 04:42 10/02/24 04:00 74 10/02/24 04:00 98.4 F 102 H 18 146/54 H 10/02/24 03:00 10/02/24 00:58 10/02/24 00:00 105 H 10/01/24 23:51 98.1 F 108 H 17 139/57 L 10/01/24 23:00 10/01/24 21:00 10/01/24 20:03 118 H 10/01/24 20:00 10/01/24 19:35 98.8 F 115 H 18 164/66 H 10/01/24 18:41 10/01/24 17:00 10/01/24 16:45 10/01/24 16:39 120 H 10/01/24 16:15 97.8 F 123 H 18 142/77 H 10/01/24 16:11 98.0 F 123 H 16 148/67 H 10/01/24 15:30 123 H 148/67 H 10/01/24 15:27 122 H 152/63 H 10/01/24 13:45 131 H 10/01/24 13:11 98.2 F 125 H 18 167/70 H Pulse Ox O2 Del Method 10/02/24 06:44 Room Air 10/02/24 04:42 Room Air 10/02/24 04:00 10/02/24 04:00 96 Room Air 10/02/24 03:00 Room Air 10/02/24 00:58 Room Air 10/02/24 00:00 10/01/24 23:51 97 Room Air 10/01/24 23:00 Room Air 10/01/24 21:00 Room Air 10/01/24 20:03 10/01/24 20:00 Room Air 10/01/24 19:35 97 Room Air 10/01/24 18:41 Room Air 10/01/24 17:00 Room Air 10/01/24 16:45 Room Air 10/01/24 16:39 10/01/24 16:15 99 Room Air 10/01/24 16:11 Room Air 10/01/24 15:30 96 Room Air 10/01/24 15:27 95 Room Air 10/01/24 13:45 96 Room Air 10/01/24 13:11 96 Room Air Intake and Output 10/01/24 10/01/24 10/02/24 15:59 23:59 07:59 Intake Total 0 / 380 380 / 380 Output Total 2350 / 2350 150 / 150 Balance -2349 230 230 Intake: Intake, Oral Amount 0 / 380 380 / 380 Output: Output, Urine Amount 0 / 2350 150 / 150 Other: Number of Unmeasured Voids 0 0 Weight 192.777 kg 188.2 kg 187.969 kg Patient Weight 10/02/24 23:59 Weight 187.969 kg Laboratory Results - last 24 hr 10/01/24 13:40: WBC 5.8, RBC 3.70 L, Hgb 12.7 L, Hct 37.2 L, MCV 100.3 H, MCH 34.3 H, MCHC 34.2, RDW 16.7, Plt Count 93 L, MPV 9.4, Neut % (Auto) 60.0, Lymph % (Auto) 29.0, [place] % (Auto) 9.0, Eos % (Auto) 1.4, Baso % (Auto) 0.6, Neut # (Auto) 3.5, Lymph # (Auto) 1.7, [place] # (Auto) 0.5, Eos # (Auto) 0.1, Baso # (Auto) 0.0, NT-Pro-B Natriuret Pep 54.8 10/01/24 14:04: PT 17.3 H, INR 1.62 H, Sodium 131 L, Potassium 3.2 L, Chloride 93 L, Carbon Dioxide 34 H, Anion Gap 7.2, BUN 6 L, Creatinine 0.70, Estimated Creat Clear 156, Estimated GFR 126, Est GFR ( Amer) 152, Glucose 113 H, Calcium 7.9 L, Magnesium 1.7, Total Bilirubin 4.1 H, AST 165 H, ALT 52, Alkaline Phosphatase 251 H, Troponin I 0.02, Total Protein 7.2, Albumin 2.5 L, Globulin 4.7 H, Albumin/Globulin Ratio 0.5 L, TSH 3.72, HIV 1&2 Antibody Rapid Nonreactive 10/01/24 15:27: Urine Color Yellow, Urine Appearance Clear, Urine pH 6.0, Ur Specific [place] 1.010, Urine Protein Negative, Urine Glucose (UA) Negative, Urine Ketones Negative, Urine Blood 3+ A, Urine Nitrate Negative, Urine Bilirubin Negative, Urine Urobilinogen 4.0, Ur Leukocyte Esterase Negative, Urine RBC Tntc, Urine WBC Occasional, Ur Squamous Epith Cells 5-10, Urine Bacteria 1+ 10/01/24 17:20: Troponin I 0.02 10/01/24 19:45: Ammonia 42 H, Troponin I 0.02 10/02/24 05:59: WBC 4.0 L D, RBC 3.63 L, Hgb 12.2 L, Hct 36.7 L, MCV 101.1 H, MCH 33.7 H, MCHC 33.3, RDW 16.8, Plt Count 80 L, MPV 8.1, Neut % (Auto) 61.8, Lymph % (Auto) 25.6, [place] % (Auto) 9.9 H, Eos % (Auto) 1.5, Baso % (Auto) 1.3, Neut # (Auto) 2.5, Lymph # (Auto) 1.0, [place] # (Auto) 0.4, Eos # (Auto) 0.1, Baso # (Auto) 0.1, PT 16.7 H, INR 1.56 H, Sodium 133 L, Potassium 3.3 L, Chloride 94 L, Carbon Dioxide 38 H, Anion Gap 4.3 L, BUN 7 L, Creatinine 0.70, Estimated Creat Clear 156, Estimated GFR 126, Est GFR ( Amer) 152, Glucose 96, Calcium 7.6 L, Magnesium 2.2 D, Total Bilirubin 4.2 H, AST 137 H, ALT 45, Alkaline Phosphatase 235 H, Total Protein 6.4, Albumin 2.3 L, Globulin 4.1 H, Albumin/Globulin Ratio 0.6 L, Triglycerides 112, Cholesterol 134 L, LDL Cholesterol Direct 87.07 L, VLDL Cholesterol 22, HDL Cholesterol 13 L, Cholesterol/HDL Ratio 10.3 H I & O for Labs for Last 24 Hours: Intake & Output 11/20/09/30/24 10/01/24 10/02/24 23:59 23:59 23:59 23:59 Intake Total 0 / 380 380 / 380 Output Total 0 / 2350 150 / 150 Balance -2349 / 230 / 230 Weight 188.2 kg 187.969 kg Constitutional: Present no acute distress, morbidly obese, chronically ill appearing and cooperative Head: Present atraumatic and normocephalic ENT: Present normal exam Comment:: Scleral icterus Respiratory: Present distant breath sounds and normal respiratory effort; Absent rhonchi, wheezes or crackles Cardiac: Present Reg Rate and Rhythm GI: Present soft, distention and normal bowel sounds; Absent tenderness or guarding Comments:: Pitting edema of abdominal wall Extremities: Present normal inspection, full ROM and edema (3+ to thighs/abdomen) Comment:: Anasarca Skin: Present intact and jaundice; Absent erythema Comment:: Slightly yellow skin, alicea/jaundiced appearance Neuro: Present Grossly Intact, alert, awake, oriented x 3 and moves all extremities Assessment and Plan *Assessment and plan (1) 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): Status: Acute Category: Medical Code(s): B19.20 - Unspecified viral hepatitis C without hepatic coma; K74.69 - Other cirrhosis of liver (2) Tachycardia: Status: Acute Category: Medical Code(s): R00.0 - Tachycardia, unspecified (3) Chronic hepatitis C virus infection: Status: Acute Category: Medical Code(s): B18.2 - Chronic viral hepatitis C (4) Anasarca: Status: Acute Category: Medical Code(s): R60.1 - Generalized edema (5) Thrombocytopenia: Status: Acute Category: Medical Code(s): D69.6 - Thrombocytopenia, unspecified (6) Opioid use disorder: Status: Acute Category: Medical Code(s): F11.90 - Opioid use, unspecified, uncomplicated (7) Morbid obesity with BMI of 50.0-59.9, adult: Status: Acute Category: Medical Code(s): E66.01 - Morbid (severe) obesity due to excess calories; Z68.43 - Body mass index [BMI] 50.0-59.9, adult (8) Tobacco use disorder: Status: Acute Category: Medical Code(s): F17.200 - Nicotine dependence, unspecified, uncomplicated Plan 38-year-old male with decompensated cirrhosis. Presents with anasarca and dyspnea. Workup in the ER concerning for volume overload. Discussed case with ER physician, request admission for diuresis and further management of his cirrhosis. I agreed to admit. GI consulted. Discussed case, will aggressively diurese. Evaluate for initiation of treatment for his hepatitis C. Necessitating inpatient management. Anticipate admission greater than 2 midnights. Responding to diuresis. Problems addressed as follows. Decompensated cirrhosis Hepatitis C Anasarca Thrombocytopenia -MELD 17, FIB4 = 9.6, INR 1.6. -Platelets 80 this morning, electrolytes stable with sodium 133, potassium 3.3, magnesium 2.2, calcium 7.6. Liver enzymes still abnormal with bilirubin 4.2, AST 137, ALT 45, alkaline phosphatase 234 -Repeat CBC, CMP, magnesium ordered for the morning given aggressive diuresis and need for replacement of electrolytes and close monitoring -Albumin remains low at 2.3. Will consider replacement if continues to drop. -Continue spironolactone 100 mg daily. Bumex 2 mg IV twice daily -Strict ins and outs -GI consulted, recommend continuing diuresis as above. Will need to initiate treatment for hepatitis C, consider prior to discharge home. Address decompensation first. -Ammonia elevated at 42. Will initiate lactulose daily as patient is already having daily bowel movements. - AFP, hep C RNA pending -Will proceed with imaging this weekend of abdomen including CT of abdomen to evaluate liver architecture and for varices. -Phytonadione 10 mg once for coagulopathy, repeat INR 1.56 this morning. Repeat ordered for the morning Opioid use disorder: Reports history of IV drug use. Has not used in 11 years. Off and on Suboxone. Having mild withdrawal symptoms with tachycardia. Last used Suboxone yesterday with 1/2 tablet. Will initiate 8 mg / 2 mg Suboxone daily. Monitor for improvement in symptoms. Peers port specialist can. Anticipate referral to outpatient treatment at discharge Morbid obesity complicates all aspects of his care Tobacco use disorder: Nicotine patch 21 mg daily Full code Regular diet Holding anticoagulation in the setting of thrombocytopenia
[2024-10-02] MEDS: BUMETANIDE 1MG/4ML VIAL 1 MG IV (09:12)
[2024-10-02] MEDS: BUPRENORPHINE/NALOXONE 8MG/2MG ODT 1 EACH SL (09:13)
[2024-10-02] MEDS: SPIRONOLACTONE 25MG TABLET 100 MG PO (09:13)
--- NOTE | 2024-10-02 09:36 | HMH.PHAINT1 ---
Pharmacy Intervention Comments: PER NURSE JOAQUIM, PATIENT STATES HE DOESN'T TAKE ANY MEDICATIONS AT HOME, VERIFIED VIA EXTERNAL PHARMACY FILL HISTORY AND PDMP REPORT.
[2024-10-02] MEDS: POTASSIUM CHLORIDE 20MEQ TAB 40 MEQ PO ×2 (10:47→13:40)
[2024-10-02] MEDS: BUMETANIDE 1MG/4ML VIAL 2 MG IV (15:38)
--- NOTE | 2024-10-02 18:23 | PC.NURSE ---
PT HAS DONE WELL TODAY WITH FAIR DIURESIS. AT TIMES HIS URINE IS DARK DERRELL IN COLOR. VSS. HEART RATE IS MUCH BETTER. PT STATES THAT HE DOES FEEL A LITTLE BETTER AND HIS SKIN DOES NOT FEEL TIGHT TODAY. HE STILL REMAINS WITH 4+ PITTING EDEMA. NO COMPLAINS OF N/V/D OR SHORTNESS OF BREATH.
[2024-10-02] MEDS: PANTOPRAZOLE 40MG TABLET 40 MG PO (20:03)
[2024-10-02] MEDS: LACTULOSE 20GM/30ML UDC 20 GM PO (20:03)
[2024-10-03] VITALS (11 sets, daily range): BP systolic 134–146; BP diastolic 66–75; PULSE 101–150; RESP 16–20; TEMP 36.6–37; O2SAT 96–99; BMI 55.3
--- NOTE | 2024-10-03 04:16 | PC.NURSE ---
Patient is alert and oriented x4. Patient was observed to have eyes closed, respirations even and unlabored on room air, and no apparent distress throughout the majority of the night. A visitor has remained at the bedside with him as well. The patient has been ambulating independently in his room and to the bathroom; he tolerates ambulation well. Significant anasarca still noted. Urine output has been measured and emptied appropriately this shift. Patient refused a bedtime snack but was given fresh ice water earlier this evening. He has been tolerating a regular diet. Patient complained of mild soreness in his legs a couple times this shift; he has not asked for any pain medication or other pain-relieving interventions thus far. Scheduled medications to be administered this shift were given per JAN. Upon auscultation, patient's lung sounds were clear, S1/S2 heart sounds could be heard, and bowel sounds were active. Upon palpation of the patient's abdomen, it was large, round, non-tender, and very firm. Patient has been running sinus tachycardia on telemetry this shift. Other vital signs have remained relatively stable. At this time, the patient remains resting upright in his chair; he has remained in the chair for nearly the entirety of the shift. He does not have any further complaints. No acute changes noted. Call light within reach.
[2024-10-03 06:43] LABS: Basophils % 0.8 % (0.1-2.0); Eosinophils # 0.1 K/mm3 (0.0-0.4); Eosinophils % 1.1 % (0.1-12.0); Hematocrit 39.1 % (42.0-52.0); Lymphocytes % 24.5 % (10-50); Mean Corpuscular HGB Conc 33.3 g/dL (31.8-35.4); Mean Platelet Volume 8.4 fl (7.4-10.4); Monocytes # 0.4 K/mm3 (0.1-1.0); Monocytes % 9.9 % (1.7-9.3); Neutrophils # 2.5 K/mm3 (1.8-7.8); Neutrophils % 63.6 % (37.0-80.0); Platelet Count 82 K/mm3 (142-424); Red Blood Count 3.84 M/mm3 (4.60-6.20); Red Cell Distribution Width 16.7 % (11.5-17.5)
[2024-10-03 06:50] LABS: Alanine Aminotransferase 46 U/L (12-78); Albumin Level 2.5 g/dl (3.5-5.0); Albumin/Globulin Ratio 0.6 (1.1-1.8); Alkaline Phosphatase 252 U/L (38-126); Anion Gap 4.6 mEq/L (5-15); Aspartate Amino Transferase 143 U/L (17-59); Blood Urea Nitrogen 7 mg/dl (9-20); Calcium 7.8 mg/dl (8.4-10.2); Carbon Dioxide 39 mmol/L (22.0-30.0); Chloride 94 mmol/L (98-107); Creatinine Clearance Estimated 136 mL/min (50-200); Estimated Glomerular Filt Rate 108 ml/min (>60); GFR (African American) 130 ML/MIN (>60); Globulin 4.5 g/dL (1.3-3.2); Glucose 113 mg/dl (74-100); Potassium 3.6 mmoL/L (3.5-5.1); Sodium 134 mmol/L (136-145)
--- NOTE | 2024-10-03 07:13 | CT_ITS ---
PROCEDURE INFORMATION: Exam: CT Abdomen Without And With Contrast Exam date and time: 10/03/2024 7:44 AM Age: 38 years old Clinical indication: Condition or disease; Liver condition; Cirrhosis; Additional info: Eval cirrhosis, portal HTN, hcc? TECHNIQUE: Imaging protocol: Computed tomography of the abdomen without and with contrast. Radiation optimization: All CT scans at this facility use at least one of these dose optimization techniques: automated exposure control; mA and/or kV adjustment per patient size (includes targeted exams where dose is matched to clinical indication); or iterative reconstruction. Contrast material: ISOVUE; Contrast volume: 85 ml; Contrast route: IV; COMPARISON: CR XR CHEST PORTABLE 10/01/2024 1:59 PM FINDINGS: Limitations: The exam is limited due to poor [id number] ratio Pleural spaces: Moderate left pleural effusion and compressive atelectasis Liver: Cirrhosis. No obvious focal hepatic lesions. Scattered hepatic granulomas noted Gallbladder and biliary ducts: Gallbladder is distended without radiopaque cholelithiasis. No biliary ductal dilation. Pancreas: No peripancreatic fluid stranding. No main pancreatic ductal dilation. Spleen: Splenomegaly to 18 cm Adrenal glands: The adrenal glands are normal. Kidneys: No nephrolithiasis or hydroureteronephrosis on either side. Stomach and bowel: No bowel wall thickening or distention. Intraperitoneal space: Moderate volume ascites. Vasculature: Unremarkable. No abdominal aortic aneurysm. Lymph nodes: Calcified upper abdominal lymph nodes suggest prior granulomatous exposure. Bones/joints: No acute osseous abnormality. Soft tissues: Unremarkable. IMPRESSION: 1. Limited exam. 2. Cirrhosis and portal hypertension as evidenced by splenomegaly and ascites. 3. No obvious liver lesion.
[2024-10-03 07:48] LABS: INR 1.49 (0.9-1.1)
[2024-10-03] MEDS: SODIUM CHLORIDE 0.9% 10ML SYR (RAD ONLY) 10 ML IV (07:56)
[2024-10-03] MEDS: IOPAMIDOL-370 (76%);100ML BOTTLE 85 ML IV (07:57)
[2024-10-03 08:12] LABS: AFP, Tumor Marker 6.1 ng/mL (0.0-6.9)
[2024-10-03] MEDS: BUPRENORPHINE/NALOXONE 8MG/2MG ODT 1 EACH SL (08:51)
[2024-10-03] MEDS: SPIRONOLACTONE 25MG TABLET 100 MG PO (08:51)
[2024-10-03] MEDS: LACTULOSE 20GM/30ML UDC 20 GM PO ×2 (08:52→20:40)
[2024-10-03] MEDS: BUMETANIDE 1MG/4ML VIAL 2 MG IV ×2 (08:52→15:07)
--- NOTE | 2024-10-03 13:06 | P.PN_ITS ---
Subjective *Date: 10/03/24 *Time: 13:06 Interval history: Overall doing well. Diuresing well. Down at least 4 L. Weight on standing scale down from 192 kg to 185kg today. Stable on room air. No nausea or vomiting. Having daily bowel movements. Obtaining CT of abdomen today. Feeling a little better. Still has significant swelling and anasarca of abdomen and legs. Medical Exam Vital signs and Labs for Last 24 Hours: Vital Signs Temp Pulse Pulse Resp BP Pulse Ox O2 Del Method 10/03/24 12:00 110 H 10/03/24 11:40 98.1 F 114 H 19 146/73 H 99 Room Air 10/03/24 11:00 Room Air 10/03/24 09:00 Room Air 10/03/24 08:00 Room Air 10/03/24 08:00 110 H 10/03/24 07:33 97.9 F 109 H 20 142/69 H 99 Room Air 10/03/24 06:45 Room Air 10/03/24 05:00 Room Air 10/03/24 04:00 107 H 10/03/24 04:00 98.1 F 101 H 17 138/67 96 Room Air 10/03/24 03:00 Room Air 10/03/24 01:00 Room Air 10/03/24 00:08 104 H 10/03/24 00:00 97.9 F 106 H 17 142/73 H 99 Room Air 10/02/24 23:00 Room Air 10/02/24 21:00 Room Air 10/02/24 20:03 107 H 10/02/24 20:00 105 H 17 99 Room Air 10/02/24 19:49 98.4 F 105 H 17 131/68 99 Room Air 10/02/24 18:57 Room Air 10/02/24 17:00 Room Air 10/02/24 16:00 100 H 10/02/24 15:55 97.7 F 98 H 19 143/73 H 98 Room Air 10/02/24 15:00 Room Air Intake and Output 10/02/24 10/03/24 10/03/24 23:59 07:59 15:59 Intake Total 400 / 1670 180 / 180 Output Total 1700 / 3050 650 / 1950 1300 / 1950 Balance -1300 / -1380 -470 / -1770 -1300 / -1770 Intake: Intake, Oral Amount 400 / 1660 180 / 180 Output: Output, Urine Amount 1700 / 3050 650 / 1950 1300 / 1950 Other: Number of Unmeasured Voids 0 Number of Bowel Movements 1 Weight 185.202 kg Patient Weight 10/03/24 23:59 Weight 185.202 kg Laboratory Results - last 24 hr 10/01/24 14:04: Hepatitis C Ab Note Comment, HCV Quantitation 2650, HCV RNA (PCR) IU log10 3.423 10/01/24 19:45: Tumor Marker AFP 6.1 10/03/24 05:48: WBC 4.0 L, RBC 3.84 L, Hgb 13.0 L, Hct 39.1 L, MCV 102.0 H, MCH 34.0 H, MCHC 33.3, RDW 16.7, Plt Count 82 L, MPV 8.4, Neut % (Auto) 63.6, Lymph % (Auto) 24.5, Yancey % (Auto) 9.9 H, Eos % (Auto) 1.1, Baso % (Auto) 0.8, Neut # (Auto) 2.5, Lymph # (Auto) 1.0, Yancey # (Auto) 0.4, Eos # (Auto) 0.1, Baso # (Auto) 0.0, PT 16.0 H, INR 1.49 H, Sodium 134 L, Potassium 3.6, Chloride 94 L, Carbon Dioxide 39 H, Anion Gap 4.6 L, BUN 7 L, Creatinine 0.80, Estimated Creat Clear 136, Estimated GFR 108, Est GFR ( Amer) 130, Glucose 113 H, Calcium 7.8 L, Magnesium 2.0, Total Bilirubin 4.0 H, AST 143 H, ALT 46, Alkaline Phosphatase 252 H, Total Protein 7.0, Albumin 2.5 L, Globulin 4.5 H, Albumin/Globulin Ratio 0.6 L I & O for Labs for Last 24 Hours: Intake & Output 09/30/24 10/01/24 10/02/24 10/03/24 23:59 23:59 23:59 23:59 Intake Total 0 / 380 1490 / 1670 180 / 180 Output Total 2350 / 2350 2850 / 3050 1950 / 1950 Balance -2350 / -1970 -1360 / -1380 -1770 / -1770 Weight 188.2 kg 187.969 kg 185.202 kg Constitutional: Present no acute distress, morbidly obese, chronically ill appearing and cooperative Head: Present atraumatic and normocephalic ENT: Present normal exam Comment:: Scleral icterus Respiratory: Present distant breath sounds and normal respiratory effort; Absent rhonchi, wheezes or crackles Cardiac: Present Reg Rate and Rhythm GI: Present soft, distention and normal bowel sounds; Absent tenderness or guarding Comments:: Pitting edema of abdominal wall Extremities: Present normal inspection, full ROM and edema (3+ to thighs/abdomen) Comment:: Anasarca Skin: Present intact and jaundice; Absent erythema Comment:: Slightly yellow skin, alicea/jaundiced appearance Neuro: Present Grossly Intact, alert, awake, oriented x 3 and moves all extremities Assessment and Plan *Assessment and plan (1) 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): Status: Acute Category: Medical Code(s): B19.20 - Unspecified viral hepatitis C without hepatic coma; K74.69 - Other cirrhosis of liver (2) Tachycardia: Status: Acute Category: Medical Code(s): R00.0 - Tachycardia, unspecified (3) Chronic hepatitis C virus infection: Status: Acute Category: Medical Code(s): B18.2 - Chronic viral hepatitis C (4) Anasarca: Status: Acute Category: Medical Code(s): R60.1 - Generalized edema (5) Thrombocytopenia: Status: Acute Category: Medical Code(s): D69.6 - Thrombocytopenia, unspecified (6) Opioid use disorder: Status: Acute Category: Medical Code(s): F11.90 - Opioid use, unspecified, uncomplicated (7) Morbid obesity with BMI of 50.0-59.9, adult: Status: Acute Category: Medical Code(s): E66.01 - Morbid (severe) obesity due to excess calories; Z68.43 - Body mass index [BMI] 50.0-59.9, adult (8) Tobacco use disorder: Status: Acute Category: Medical Code(s): F17.200 - Nicotine dependence, unspecified, uncomplicated Plan 38-year-old male with decompensated cirrhosis. Presents with anasarca and dyspnea. Workup in the ER concerning for volume overload. Discussed case with ER physician, request admission for diuresis and further management of his cirrhosis. I agreed to admit. GI consulted. Discussed case, will aggressively diurese. Evaluate for initiation of treatment for his hepatitis C. Necessitating inpatient management. Anticipate admission greater than 2 midnights. Responding to diuresis, continue with aggressive inpatient management. GI to see patient in the morning. Problems addressed as follows. Decompensated cirrhosis Hepatitis C Anasarca Thrombocytopenia -MELD 17, FIB4 = 9.6, INR 1.6. -Platelets 82 this morning. INR down slightly to 1.49. Electrolytes showing improvement with sodium 134, potassium 3.6, magnesium 2.0, albumin stable at 2.5. Liver enzymes relatively unchanged with bilirubin 4, AST 143, ALT 46, alk phos 252. - Repeat CBC, CMP, magnesium, and INR ordered for the morning given aggressive diuresis and need for replacement of electrolytes and close monitoring -Continue spironolactone 100 mg daily. Bumex 2 mg IV twice daily -Strict ins and outs -GI consulted, recommend continuing diuresis as above. Will need to initiate treatment for hepatitis C, address decompensation first. -Continue lactulose twice daily as patient is already having daily bowel movements. - AFP within normal limits at 6.1. Hep C RNA still pending -CT of abdomen with and without contrast obtained. Poor images however per my review does have what appears to be cirrhosis with heterogenous appearance of liver and prominent portal vasculature concerning for portal hypertension. Opioid use disorder: Reports history of IV drug use. Has not used in 11 years. Off and on Suboxone. Having mild withdrawal symptoms with tachycardia. Last used Suboxone day before admission with half tablet. Tolerating 8 mg / 2 mg Suboxone daily -certified peer specialist consulted, Anticipate referral to outpatient treatment at discharge Morbid obesity complicates all aspects of his care Tobacco use disorder: Nicotine patch 21 mg daily Full code Regular diet Holding anticoagulation in the setting of thrombocytopenia
--- NOTE | 2024-10-03 16:10 | PC.NURSE ---
pt has remained in the chair for the entirety of the shift. treated with diuretics per MAR this shift with output recorded in I&O. pt does not voice any pain. sinus tach on tele. expiratory wheezing noted on auscultation. extreme edema noted throughout entire body. abdomen is large, round and tender. pt states that he feels temporary relief shortly after diuresing. showered this shift and verbalized feeling better. no complaints at this time. tolerating ambulation independently well. call light within reach.
[2024-10-03] MEDS: PANTOPRAZOLE 40MG TABLET 40 MG PO (20:40)
[2024-10-04] VITALS (7 sets, daily range): BP systolic 130–160; BP diastolic 55–88; PULSE 96–112; RESP 17–18; TEMP 36.6–36.7; O2SAT 92–99; BMI 55.0; BMI 54.9
--- NOTE | 2024-10-04 06:13 | PC.NURSE ---
Alert and oriented. No complaints. Slept in chair throughout night. 3+ edema. Stomach large, bowel sounds active. Call light in reach.
[2024-10-04 06:15] LABS: Eosinophils # 0.1 K/mm3 (0.0-0.4); Eosinophils % 1.4 % (0.1-12.0); Hematocrit 37.1 % (42.0-52.0); Hemoglobin 12.4 g/dL (14.1-18.0); Lymphocytes # 1.4 K/mm3 (0.7-4.5); Lymphocytes % 32.6 % (10-50); Mean Corpuscular HGB Conc 33.5 g/dL (31.8-35.4); Mean Corpuscular Hemoglobin 34.5 pg (27.0-31.2); Mean Corpuscular Volume 102.9 fl (80-94); Monocytes # 0.4 K/mm3 (0.1-1.0); Monocytes % 10.2 % (1.7-9.3); Neutrophils # 2.3 K/mm3 (1.8-7.8); Neutrophils % 54.8 % (37.0-80.0); Platelet Count 76 K/mm3 (142-424); Red Blood Count 3.61 M/mm3 (4.60-6.20); Red Cell Distribution Width 16.6 % (11.5-17.5); White Blood Count 4.3 K/mm3 (4.8-10.8)
[2024-10-04 06:22] LABS: Chloride 96 mmol/L (98-107)
[2024-10-04 06:23] LABS: Albumin Level 2.4 g/dl (3.5-5.0); Potassium 3.7 mmoL/L (3.5-5.1); Sodium 132 mmol/L (136-145)
[2024-10-04 06:25] LABS: Alanine Aminotransferase 43 U/L (12-78); Anion Gap 3.7 mEq/L (5-15); Aspartate Amino Transferase 129 U/L (17-59); Blood Urea Nitrogen 8 mg/dl (9-20); Carbon Dioxide 36 mmol/L (22.0-30.0); Creatinine Clearance Estimated 136 mL/min (50-200); Estimated Glomerular Filt Rate 108 ml/min (>60); GFR (African American) 130 ML/MIN (>60)
[2024-10-04 06:26] LABS: Albumin/Globulin Ratio 0.5 (1.1-1.8); Alkaline Phosphatase 234 U/L (38-126); Bilirubin,Total 3.2 mg/dl (0.2-1.3); Calcium 8.1 mg/dl (8.4-10.2); Globulin 4.7 g/dL (1.3-3.2); Glucose 100 mg/dl (74-100); Total Protein,Serum 7.1 g/dl (6.3-8.2)
[2024-10-04 06:45] LABS: Magnesium 1.9 mg/dl (1.6-2.3)
[2024-10-04 06:46] LABS: INR 1.47 (0.9-1.1); Prothrombin Time 15.8 seconds (10.1-12.5)
--- NOTE | 2024-10-04 07:29 | EXP.GE.CONS ---
History of Present Illness *Admission Date: 10/01/24 *History of present illness: Mr. Justice is a 38-year-old male with longstanding history of hepatitis C for approximately 10 years. He is untreated. He presented today to the ER due to worsening swelling in his legs and abdomen. States has been having increased swelling over the past 1 to 2 months. He had swelling in his ankles for years but not to the point that it is at at this time. Over the past 1 to 2 months he has gained a little over 70 pounds of fluid per his report. States he short of breath with exertion. Denies any chest pain, nausea, confusion, diarrhea. Urinating at baseline. Having daily bowel movements. Reports history of IV drug use, last used 11 years ago. Has been on Suboxone legitimately and illicitly. Most recently due to loss of insurance, has been buying Suboxone off the street taking 4 to 8 mg daily. Denies any illicit drugs. Smokes a pack a day. Drinks a few times a week. On workup in the ER, found to be in decompensated cirrhosis with significant edema, elevated INR. Medicine and GI consulted for admission and further management. On arrival to the floor, patient is sitting upright in bedside chair. In no acute distress. Morbidly obese. Significant edema on exam up to abdomen. Afebrile. Alert and oriented x 4. Spoke with Dr. Gomez on night of admission. Patient diuresing well with spironolactone and bumetanide. Creatinine stable at 0.80. Albumin remains low at 2.4. The patient reports no abdominal pain. He does use some alcohol recently. He has used NSAIDs occasionally. He has never received treatment for his hepatitis C. HCV quantitation is back. I do not see that genotype was tested. Patient was given vitamin K with some improvement of coagulation with PT 15.8 and INR 1.47 down from admission of 17.3 and 1.62. The patient did have CT scan yesterday showing some ascites as well as signs of cirrhosis and portal hypertension. The patient's total bilirubin is 3.2 with AST 129, ALT 43 and alkaline phosphatase 234. [facility] Disclaimer: The information contained in this section may have been updated after the patient was seen, as this information can be updated by other users. Medical History Inguinal hernia Family History Other Family history of diabetes mellitus type II Social History Smoking Status: Current every day smoker tobacco type: cigarettes packs per day: 2 alcohol intake: never current occupational status: other Travel in the last 8 weeks: None household members: other housing: other Meds Home Medications and Allergies Home Medications ?Medication ?Instructions ?Recorded ?Confirmed ?Type No Known Home Medications 08/18/20 10/01/24 History New Prescriptions to Start Prescriptions: Allergies Allergy/AdvReac Type Severity Reaction Status Date / Time No Known Allergies Allergy Verified 10/30/19 16:38 Exam (Inpt) Vital signs and Labs for Last 24 Hours: Temp Pulse Resp BP Pulse Ox O2 Del Method 98.0 F 102 H 17 150/70 H 99 Room Air 10/04/24 04:00 10/04/24 04:00 10/04/24 04:00 10/04/24 04:00 10/04/24 04:00 10/04/24 06:49 Laboratory Results - last 24 hr 10/01/24 19:45: Tumor Marker AFP 6.1 10/03/24 05:48: PT 16.0 H, INR 1.49 H 10/04/24 05:33: WBC 4.3 L, RBC 3.61 L, Hgb 12.4 L, Hct 37.1 L, MCV 102.9 H, MCH 34.5 H, MCHC 33.5, RDW 16.6, Plt Count 76 L, MPV 8.0, Neut % (Auto) 54.8, Lymph % (Auto) 32.6, Jackson % (Auto) 10.2 H, Eos % (Auto) 1.4, Baso % (Auto) 1.0, Neut # (Auto) 2.3, Lymph # (Auto) 1.4, Jackson # (Auto) 0.4, Eos # (Auto) 0.1, Baso # (Auto) 0.0, PT 15.8 H, INR 1.47 H, Sodium 132 L, Potassium 3.7, Chloride 96 L, Carbon Dioxide 36 H, Anion Gap 3.7 L, BUN 8 L, Creatinine 0.80, Estimated Creat Clear 136, Estimated GFR 108, Est GFR ( Amer) 130, Glucose 100, Calcium 8.1 L, Magnesium 1.9, Total Bilirubin 3.2 H, AST 129 H, ALT 43, Alkaline Phosphatase 234 H, Total Protein 7.1, Albumin 2.4 L, Globulin 4.7 H, Albumin/Globulin Ratio 0.5 L I & O for Labs for Last 24 Hours: Intake & Output 10/01/24 10/02/24 10/03/24 10/04/24 23:59 23:59 23:59 23:59 Intake Total 0 / 380 1490 / 1670 580 / 880 300 / 300 Output Total 2350 / 2350 2850 / 3050 3550 / 3550 300 / 300 Balance -2350 / -1970 -1360 / -1380 -2970 / -2670 0 / 0 Weight 414 lb 14.559 oz 414 lb 6.4 oz 408 lb 4.8 oz 406 lb 12.8 oz GI: Present distention Comments:: Very protuberant abdomen with difficulty in assessment of liver/spleen, nontender, no rebound or guarding, no masses Results Labs 10/04/24 05:33 10/04/24 05:33 Labs: Laboratory Results - last 24 hr 10/01/24 19:45: Tumor Marker AFP 6.1 10/03/24 05:48: PT 16.0 H, INR 1.49 H 10/04/24 05:33: WBC 4.3 L, RBC 3.61 L, Hgb 12.4 L, Hct 37.1 L, MCV 102.9 H, MCH 34.5 H, MCHC 33.5, RDW 16.6, Plt Count 76 L, MPV 8.0, Neut % (Auto) 54.8, Lymph % (Auto) 32.6, Jackson % (Auto) 10.2 H, Eos % (Auto) 1.4, Baso % (Auto) 1.0, Neut # (Auto) 2.3, Lymph # (Auto) 1.4, Jackson # (Auto) 0.4, Eos # (Auto) 0.1, Baso # (Auto) 0.0, PT 15.8 H, INR 1.47 H, Sodium 132 L, Potassium 3.7, Chloride 96 L, Carbon Dioxide 36 H, Anion Gap 3.7 L, BUN 8 L, Creatinine 0.80, Estimated Creat Clear 136, Estimated GFR 108, Est GFR ( Amer) 130, Glucose 100, Calcium 8.1 L, Magnesium 1.9, Total Bilirubin 3.2 H, AST 129 H, ALT 43, Alkaline Phosphatase 234 H, Total Protein 7.1, Albumin 2.4 L, Globulin 4.7 H, Albumin/Globulin Ratio 0.5 L Assessment and Plan *Assessment and plan (1) Ascites: Status: Acute Category: Medical Code(s): R18.8 - Other ascites (2) Portal hypertension: Status: Acute Category: Medical Code(s): K76.6 - Portal hypertension (3) 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 Ascites/anasarca secondary to decompensated cirrhosis. Certainly his hypoalbuminemia is playing a role. I would agree with combined spironolactone and bumetanide which are certainly helping with his diuresis. I would limit sodium intake but also advise protein calorie nutrition and avoidance of NSAIDs and alcohol. With decompensated cirrhosis, Antiviral treatment should be undertaken with close observation. I would like to check MELD score. Initial therapy for any genotype is usually sofosbuvir?velpatasvir plus weight-based dosing of ribavirin. More serious side effects cannot cure but we do feel that some of these are likely related to the underlying liver disease itself. I would like to get genotyping back but the above treatment should be regardless of genotype. I have discussed the importance of alcohol abstinence/NSAID abstinence and need for follow-up.
[2024-10-04] MEDS: BUPRENORPHINE/NALOXONE 8MG/2MG ODT 1 EACH SL (08:19)
[2024-10-04] MEDS: SPIRONOLACTONE 25MG TABLET 100 MG PO (08:19)
[2024-10-04] MEDS: LACTULOSE 20GM/30ML UDC 20 GM PO ×2 (08:20→20:51)
[2024-10-04] MEDS: BUMETANIDE 1MG/4ML VIAL 2 MG IV ×2 (08:20→16:28)
--- NOTE | 2024-10-04 16:46 | P.PN_ITS ---
Subjective *Date: 10/04/24 *Time: 18:40 Interval history: Patient ambulatory this morning. Overall feeling well. Continues to diurese well. Down 7 L since admission. Denies any chest pain or shortness of breath. Slept better last night. Tolerating p.o. intake. Medical Exam Vital signs and Labs for Last 24 Hours: Vital Signs Temp Pulse Pulse Resp BP Pulse Ox O2 Del Method 10/04/24 15:57 97.8 F 108 H 18 160/88 H 97 10/04/24 15:00 Room Air 10/04/24 13:00 Room Air 10/04/24 12:00 110 H 10/04/24 12:00 98 F 106 H 17 130/56 L 98 10/04/24 11:00 Room Air 10/04/24 09:00 Room Air 10/04/24 08:00 100 H 10/04/24 08:00 Room Air 10/04/24 08:00 98.1 F 112 H 17 139/55 L 98 10/04/24 06:49 Room Air 10/04/24 05:00 Room Air 10/04/24 04:00 96 H 10/04/24 04:00 98.0 F 102 H 17 150/70 H 99 Room Air 10/04/24 02:57 Room Air 10/04/24 00:37 Room Air 10/04/24 00:00 100 H 10/03/24 23:59 98.6 F 110 H 17 134/71 96 Room Air 10/03/24 22:41 Room Air 10/03/24 21:00 Room Air 10/03/24 20:00 110 H 10/03/24 20:00 Room Air 10/03/24 19:45 98.5 F 112 H 17 137/75 98 Room Air 10/03/24 18:54 Room Air 10/03/24 17:00 Room Air Intake and Output 10/04/24 10/04/24 10/04/24 07:59 15:59 23:59 Intake Total 300 / 780 480 / 780 Output Total 300 / 1400 1100 / 1400 Balance 0 / -620 -620 / -620 Intake: Intake, Oral Amount 300 / 780 480 / 780 Output: Output, Urine Amount 300 / 1400 1100 / 1400 Other: Number of Unmeasured Voids 0 Weight 184.521 kg 184 kg Patient Weight 10/04/24 23:59 Weight 184 kg Laboratory Results - last 24 hr 10/04/24 05:33: WBC 4.3 L, RBC 3.61 L, Hgb 12.4 L, Hct 37.1 L, MCV 102.9 H, MCH 34.5 H, MCHC 33.5, RDW 16.6, Plt Count 76 L, MPV 8.0, Neut % (Auto) 54.8, Lymph % (Auto) 32.6, Dawson % (Auto) 10.2 H, Eos % (Auto) 1.4, Baso % (Auto) 1.0, Neut # (Auto) 2.3, Lymph # (Auto) 1.4, Dawson # (Auto) 0.4, Eos # (Auto) 0.1, Baso # (Auto) 0.0, PT 15.8 H, INR 1.47 H, Sodium 132 L, Potassium 3.7, Chloride 96 L, Carbon Dioxide 36 H, Anion Gap 3.7 L, BUN 8 L, Creatinine 0.80, Estimated Creat Clear 136, Estimated GFR 108, Est GFR ( Amer) 130, Glucose 100, Calcium 8.1 L, Magnesium 1.9, Total Bilirubin 3.2 H, AST 129 H, ALT 43, Alkaline Phosphatase 234 H, Total Protein 7.1, Albumin 2.4 L, Globulin 4.7 H, Albumin/Globulin Ratio 0.5 L I & O for Labs for Last 24 Hours: Intake & Output 10/01/24 10/02/24 10/03/24 10/04/24 23:59 23:59 23:59 23:59 Intake Total 0 / 380 1490 / 1670 580 / 880 780 / 780 Output Total 2350 / 2350 2850 / 3050 3550 / 3550 1400 / 1400 Balance -2350 / -1970 -1360 / -1380 -2970 / -2670 -620 / -620 Weight 188.2 kg 187.969 kg 185.202 kg 184 kg Constitutional: Present no acute distress, morbidly obese, chronically ill appearing and cooperative Head: Present atraumatic and normocephalic ENT: Present normal exam Comment:: Scleral icterus Respiratory: Present distant breath sounds and normal respiratory effort; Absent rhonchi, wheezes or crackles Cardiac: Present Reg Rate and Rhythm GI: Present soft, distention and normal bowel sounds; Absent tenderness or guarding Comments:: Pitting edema of abdominal wall Extremities: Present normal inspection, full ROM and edema (3+ to thighs/abdomen) Comment:: Anasarca Skin: Present intact and jaundice; Absent erythema Comment:: Slightly yellow skin, alicea/jaundiced appearance Neuro: Present Grossly Intact, alert, awake, oriented x 3 and moves all extremities Assessment and Plan *Assessment and plan (1) 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): Status: Acute Category: Medical Code(s): B19.20 - Unspecified viral hepatitis C without hepatic coma; K74.69 - Other cirrhosis of liver (2) Tachycardia: Status: Acute Category: Medical Code(s): R00.0 - Tachycardia, unspecified (3) Chronic hepatitis C virus infection: Status: Acute Category: Medical Code(s): B18.2 - Chronic viral hepatitis C (4) Anasarca: Status: Acute Category: Medical Code(s): R60.1 - Generalized edema (5) Thrombocytopenia: Status: Acute Category: Medical Code(s): D69.6 - Thrombocytopenia, unspecified (6) Opioid use disorder: Status: Acute Category: Medical Code(s): F11.90 - Opioid use, unspecified, uncomplicated (7) Morbid obesity with BMI of 50.0-59.9, adult: Status: Acute Category: Medical Code(s): E66.01 - Morbid (severe) obesity due to excess calories; Z68.43 - Body mass index [BMI] 50.0-59.9, adult (8) Tobacco use disorder: Status: Acute Category: Medical Code(s): F17.200 - Nicotine dependence, unspecified, uncomplicated Plan 38-year-old male with decompensated cirrhosis. Presents with anasarca and dyspnea. Workup in the ER concerning for volume overload. Discussed case with ER physician, request admission for diuresis and further management of his cirrhosis. I agreed to admit. GI consulted. Discussed case, will aggressively diurese. Evaluate for initiation of treatment for his hepatitis C. Necessitating inpatient management. Anticipate admission greater than 2 midnights. Responding to diuresis, continue with aggressive inpatient management. GI evaluating today. Dissipate discharge in the next day or 2. Problems addressed as follows: Decompensated cirrhosis Hepatitis C Anasarca Thrombocytopenia -MELD 17, FIB4 = 9.6, INR 1.6. -Labs relatively stable with platelets 76, hemoglobin 12.4, white count 4.3. Kidney function stable with BUN 8, creatinine 0.8. Potassium 3.7 with magnesium 1.9. -INR slightly improved at 1.47. -Liver function showing a positive trend with bilirubin 3.2, AST 129, ALT 43, alk phos 234. -Repeat CBC, CMP, magnesium and INR ordered for the morning; close monitoring wi th aggressive diuresis -Continue spironolactone 100 mg daily. Bumex 2 mg IV twice daily -Strict ins and outs -Continue lactulose twice daily as patient is already having daily bowel movements. - AFP within normal limits at 6.1. Hep C RNA positive. Genotype pending - Discussed case at length with GI, recommend initiating treatment either prior to discharge or as close to discharge as possible. Would benefit from antiviral along with ribavirin therapy. Close follow-up as an outpatient. Will continue Bumex and spironolactone at discharge. Diuresing well. Recommend avoiding NSAIDs and alcohol Opioid use disorder: Reports history of IV drug use. Has not used in 11 years. Off and on Suboxone. Having mild withdrawal symptoms with tachycardia. Last used Suboxone day before admission with half tablet. Tolerating 8 mg / 2 mg Suboxone daily -correspondence specialist consulted, Anticipate referral to outpatient treatment at discharge Morbid obesity complicates all aspects of his care Tobacco use disorder: Nicotine patch 21 mg daily Full code Regular diet Holding anticoagulation in the setting of thrombocytopenia
--- NOTE | 2024-10-04 16:54 | PEERSUPPORT ---
Peer Support Note Patient Information Patient Information: DOS: 10/04/2024 ? Reason: Ps follow up bedside Admit date: 10/01/2024 ? Previous Treatment: [facility]) while Incarcerated ? Longest Length of Sobriety:10 years ? Support System: very supportive: Children [facility] Outpatient ? Current Stressors: -Chronic condition of liver and kidneys, linking to his addiction and untreated hep c. ? -Not being able to attend his biological grandmother's . Pt says he was not close to her it is sad to him but his health is important for his life and family. ? -Pt would like to be home for Thanksgiving but accepting if not aware of his health being priority. ? -Pt is concerned of how he will work. He is concerned of what he can and cannot do once he is discharged. ? -He is having difficulty sleeping in the hospital bed ( Hurts his legs when he has to raise up or get in and out of the bed) ? Motivation for Change: Hopeful and determined Pt says he is aware by doctors telling him of the process and time it may take to get well. He shares openly his past lessons of life that brought him to where he is today and thankful to say he is willing to make the changes necessary. He has a support system of his family and knows the benefits of therapy and support groups. He does enjoy groups at his outpatient clinic as they remind him of how far he has come in life. ? Potential Barriers: Drinking alcohol- 2-3 times per week, patients says this is not an issue or anything he will have a problem with stopping. He mostly used is as a ease to be able to sleep. ? Insurance: [place] [employer]; Patients was able to have his [employer] reactivated today, with the help and guidance of Lisa Cannon/[facility]. Lisa to follow up today. ? Harm Reduction: -No drinking alcohol-Education on effects on alcohol to kidneys and liver. ? -Re-Enter [facility] Outpatient clinic for continued substance use treatment and utilize therapy services offered. Pt is interested in enrolling in [facility] in [place] four minutes from his house or returning to [facility] where he has been for years. ? -Discuss with family of health conditions and importance of changes in the home with diet, exercise, positive support, and accountability. ? ? Recovery Plan: MAT Outpatient: To schedule appointment at [facility] in [place], [place]. considering to prescribe take home doses of [id number]/[id number] until appointment date. Attend all follow up appointments as scheduled. [facility] Bridge Program peer support to provide positive recovery support and guidance. Peer support provided print outs for take home: Health Education Medication List Calendars for appointment upkeep Question prompts for patient/provider communication
--- NOTE | 2024-10-04 17:35 | PC.NURSE ---
patient is alert and oriented x4 and remains on RA. patient has voided via urinal, charted in I&Os. has not c/o pain. 3+ BLE edema. bowel sounds active.no further requests at this time, call light within reach.
[2024-10-04] MEDS: PANTOPRAZOLE 40MG TABLET 40 MG PO (20:51)
[2024-10-05] VITALS: BP 134/76; PULSE 100; PULSE 102; RESP 16; TEMP 36.7; O2SAT 96
[2024-10-05 04:00] VITALS: BP 137/76; PULSE 100; PULSE 107; RESP 18; TEMP 36.8; O2SAT 99; BMI 54.4
[2024-10-05 06:37] LABS: Alanine Aminotransferase 41 U/L (12-78); Albumin Level 2.4 g/dl (3.5-5.0); Albumin/Globulin Ratio 0.6 (1.1-1.8); Alkaline Phosphatase 244 U/L (38-126); Anion Gap 5.5 mEq/L (5-15); Aspartate Amino Transferase 117 U/L (17-59); Blood Urea Nitrogen 8 mg/dl (9-20); Calcium 7.9 mg/dl (8.4-10.2); Carbon Dioxide 37 mmol/L (22.0-30.0); Chloride 94 mmol/L (98-107); Creatinine Clearance Estimated 136 mL/min (50-200); Estimated Glomerular Filt Rate 108 ml/min (>60); GFR (African American) 130 ML/MIN (>60); Globulin 4.3 g/dL (1.3-3.2); Glucose 100 mg/dl (74-100); Potassium 3.5 mmoL/L (3.5-5.1); Sodium 133 mmol/L (136-145); Total Protein,Serum 6.7 g/dl (6.3-8.2)
[2024-10-05 06:41] LABS: Basophils % 0.7 % (0.1-2.0); Eosinophils # 0.1 K/mm3 (0.0-0.4); Eosinophils % 1.2 % (0.1-12.0); Hematocrit 37.1 % (42.0-52.0); Hemoglobin 12.4 g/dL (14.1-18.0); Lymphocytes # 1.1 K/mm3 (0.7-4.5); Lymphocytes % 26.5 % (10-50); Mean Corpuscular HGB Conc 33.6 g/dL (31.8-35.4); Mean Corpuscular Hemoglobin 34.5 pg (27.0-31.2); Mean Corpuscular Volume 102.7 fl (80-94); Mean Platelet Volume 8.3 fl (7.4-10.4); Monocytes # 0.4 K/mm3 (0.1-1.0); Monocytes % 10.3 % (1.7-9.3); Neutrophils # 2.5 K/mm3 (1.8-7.8); Neutrophils % 61.2 % (37.0-80.0); Platelet Count 80 K/mm3 (142-424); Red Blood Count 3.61 M/mm3 (4.60-6.20); Red Cell Distribution Width 16.5 % (11.5-17.5); White Blood Count 4.1 K/mm3 (4.8-10.8)
[2024-10-05 07:32] LABS: Magnesium 1.8 mg/dl (1.6-2.3)
[2024-10-05 08:00] VITALS: BP 149/75; PULSE 116; PULSE 120; RESP 17; TEMP 36.7; O2SAT 95
[2024-10-05] MEDS: BUPRENORPHINE/NALOXONE 8MG/2MG ODT 1 EACH SL (08:49)
[2024-10-05] MEDS: LACTULOSE 20GM/30ML UDC 20 GM PO (08:49)
[2024-10-05] MEDS: BUMETANIDE 1MG/4ML VIAL 2 MG IV (08:49)
[2024-10-05] MEDS: SPIRONOLACTONE 25MG TABLET 100 MG PO (08:49)
--- NOTE | 2024-10-05 09:28 | SW/DCPLANNER ---
I spoke w/ patient this AM regarding follow up w/ outpatient resources at time of discharge. Patient and I discussed [facility] [place] vs [facility]. Patient has requested that I come back and further discuss options once his S.O. returns to hospital. I will continue to follow up w/ patient and MD. Discharge date is unknown at this time.
--- NOTE | 2024-10-05 10:44 | CA_ITS ---
APPROVED REPORT EXAM: Comprehensive 2D, Doppler, and color-flow Echocardiogram [employer] Architect: Shelby Flood CRT Ht: 6 ft 0 in Wt: 402lbs BSA: 2.87 BP: 137/75 mmHg Indications: Shortness of Breath, Peripheral Edema, hep C, cirrhosis, tachycardia, smoker 2D Dimensions LA Volume 37.00 mL LA Volume Index 12.89 mL/m2 (M/F) 16-34 M-Mode Dimensions RVDd 2.85 cm (0.9-2.6) LA Diam 3.92 cm (1.9-4.0) LVDd 4.42 cm (3.5-5.7) LVDs 2.75 cm (3.5-5.7) IVSd 1.25 cm (0.6-1.1) PWd 1.36 cm (0.6-1.1) EF (Teich) 68.10% FS 37.80% EDV (Teich) 88.60 mL ESV (Teich) 28.30 mL LV Diastology E Decel Time 150 (160-240 msec) E/A Ratio 3.7 LAT A' 19.00 cm/s Aortic Valve LU Index 0.24 cm2/m2 AoV Peak Werner. 184.0 (50-130 cm/s) AO Peak GR. 13.50 mmHg AO Mean GR. 8.60 (<5 mmHg) AO VTI 32.1 (18-25 cm) LU (VTI) 0.72 (2.5-4.5 cm2) Mitral Valve MV E Max Werner. 140.0 (40-130 cm/s) MV A Velocity 38.0 (40-130 cm/s) E/A Ratio 3.64 MV PHT 44.0 ms Pulmonary Valve PV Peak Velocity 131.0 (50-150 cm/s) Tricuspid Valve TR P. Velocity 177.00 cm/s RAP Estimate 10.00 mmHg RVSP 22.60 mmHg Left Ventricle The left ventricle is normal size. The left ventricular systolic function is normal. The left ventricular ejection fraction is within the normal range. There is normal left ventricular wall thickness. There is normal LV segmental wall motion. The left ventricular diastolic function is normal. LVEF is 55%. Right Ventricle The right ventricle is normal size. The right ventricular systolic function is normal. Atria The left atrium size is normal. The right atrium size is normal. The interatrial septum is not well-visualized. Aortic Valve The aortic valve opens well. There is no hemodynamically significant aortic valvular stenosis. Trace aortic regurgitation. Mitral Valve The mitral valve is normal in structure. No evidence of mitral valve stenosis. Trace mitral regurgitation. Tricuspid Valve Tricuspid valve is grossly normal in structure and function. Trace tricuspid regurgitation. There is insufficient TR jet to estimate RVSP. Pulmonic Valve The pulmonary valve is normal in structure. Trace pulmonic regurgitation. Great Vessels The aortic root is normal in size. The ascending aorta is not well-visualized. The IVC is not well-visualized. Pericardium There is no pericardial effusion. Other Information Study Quality: Fair Conclusion Normal biventricular systolic function. No significant valvular stenosis or regurgitation. Electronically signed by : Kelsey Johnson MD 10/05/2024 12:52:03
[2024-10-05] MEDS: POTASSIUM CHLORIDE 20MEQ TAB 40 MEQ PO ×2 (11:48→15:24)
[2024-10-05] MEDS: MAGNESIUM SULFATE IN WATER 2 GM/50 ML PIGGYBACK IV (11:48)
[2024-10-05 12:00] VITALS: BP 146/76; PULSE 115; RESP 16; TEMP 36.6; O2SAT 94
--- NOTE | 2024-10-05 13:23 | P.PN_ITS ---
Subjective *Date: 10/05/24 *Time: 16:19 Interval history: Patient alert and oriented x 3. He continues with significant abdominal ascites and 4++ pitting edema bilateral lower extremities. Patient is diuresing well. Creatinine unchanged at 0.80. Platelets at 80. MELD sodium score equals 11. Haris Tellez C. Patient currently undergoing bedside echo. Patient has known about hepatitis C for about 7 years but has not had any treatment even partial treatment. Stopped drinking any alcohol about 3 weeks ago. Has been on Suboxone for several years and otherwise drug-free. Prior to 3 weeks ago drinking 2 alcoholic beverages about 3 times a week but has stopped completely. He is smoking 1 1/2 packs of cigarettes a day. Exam Data for Last 24 hours Vital signs and Labs for Last 24 Hours: Temp Pulse Resp BP Pulse Ox O2 Del Method 98 F 115 H 16 146/76 H 94 L Room Air 10/05/24 12:00 10/05/24 12:00 10/05/24 12:00 10/05/24 12:00 10/05/24 12:00 10/05/24 12:00 Laboratory Results - last 24 hr 10/05/24 05:44: WBC 4.1 L, RBC 3.61 L, Hgb 12.4 L, Hct 37.1 L, MCV 102.7 H, MCH 34.5 H, MCHC 33.6, RDW 16.5, Plt Count 80 L, MPV 8.3, Neut % (Auto) 61.2, Lymph % (Auto) 26.5, Morrison % (Auto) 10.3 H, Eos % (Auto) 1.2, Baso % (Auto) 0.7, Neut # (Auto) 2.5, Lymph # (Auto) 1.1, Morrison # (Auto) 0.4, Eos # (Auto) 0.1, Baso # (Auto) 0.0, Sodium 133 L, Potassium 3.5, Chloride 94 L, Carbon Dioxide 37 H, Anion Gap 5.5, BUN 8 L, Creatinine 0.80, Estimated Creat Clear 136, Estimated GFR 108, Est GFR ( Amer) 130, Glucose 100, Calcium 7.9 L, Magnesium 1.8, Total Bilirubin 3.0 H, AST 117 H, ALT 41, Alkaline Phosphatase 244 H, Total Protein 6.7, Albumin 2.4 L, Globulin 4.3 H, Albumin/Globulin Ratio 0.6 L I & O for Last 24 hours: Intake & Output 10/03/24 10/04/24 10/05/24 10/06/24 11:59 11:59 11:59 11:59 Intake Total 820 1180 1000 Output Total 3850 3000 2720 1850 Balance -3030 -1820 -1720 -1850 Weight 185.202 kg 184 kg 182.389 kg Constitutional Constitutional: no acute distress, morbidly obese and cooperative *Routine HEENT Exam Head: Present normocephalic and atraumatic ENT: Present mucous membranes moist *Routine Respiratory Exam Respiratory: Present CTA bilaterally, normal respiratory effort, able to speak in complete sentences and symmetric chest movement *Routine Cardiovascular Exam Cardiovascular: Present RRR *Routine Abdominal Exam Abdominal: Present distended (Significant distention) and firm *Routine Extremities Exam Extremities: Present edema (4+ pitting edema bilateral lower extremities) *Routine Skin Exam Skin: Present intact, dry and warm Assessment and Plan *Assessment and plan (1) Portal hypertension: Status: Acute Category: Medical Code(s): K76.6 - Portal hypertension (2) Ascites: Status: Acute Category: Medical Code(s): R18.8 - Other ascites (3) 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 Ascites/anasarca/decompensated cirrhosis/Hep C Decompensated cirrhosis with significant anasarca and ascites with hypoalbuminemia and thrombocytopenia with platelets equal to 80. Patient has known about hepatitis C for about 7 years but has not had any treatment even partial treatment. Stopped drinking any alcohol about 3 weeks ago. Has been on Suboxone for several years and otherwise drug-free. Prior to 3 weeks ago drinking 2 drinks about 3 times a week but has stopped completely. He is smoking 1/2 packs of cigarettes a day. Patient has been diuresing well currently on loop diuretic and a potassium sparing diuretic and will need to continue these. Patient is not a great candidate for paracentesis at this time. He is scheduled for follow-up as an outpatient next week with me in the office. We can do further testing including hepatitis C genotype and testing for any occult hepatitis B prior to initiation of hepatitis C treatment. He does have a MELD sodium score of 11 and is also a Haris Tellez C. He is a candidate for Epclusa with weight-based ribavirin x 12 weeks but will need close observation during treatment. I recommend avoidance of NSAIDs and alcohol completely. We will discuss referral to a dietitian for a low sodium diet in conjunction with diuretics.
--- NOTE | 2024-10-05 13:42 | P.DS_ITS ---
General Admission date:: 10/01/24 HPI HPI HPI: Mr. Justice is a 38-year-old male with longstanding history of hepatitis C for approximately 10 years. He is untreated. He presented today to the ER due to worsening swelling in his legs and abdomen. States has been having increased swelling over the past 1 to 2 months. He had swelling in his ankles for years but not to the point that it is at at this time. Over the past 1 to 2 months he has gained a little over 70 pounds of fluid per his report. States he short of breath with exertion. Denies any chest pain, nausea, confusion, diarrhea. Urinating at baseline. Having daily bowel movements. Reports history of IV drug use, last used 11 years ago. Has been on Suboxone legitimately and illicitly. Most recently due to loss of insurance, has been buying Suboxone off the street taking 4 to 8 mg daily. Denies any illicit drugs. Smokes a pack a day. Drinks a few times a week. On workup in the ER, found to be in decompensated cirrhosis with significant edema, elevated INR. Medicine and GI consulted for admission and further management. On arrival to the floor, patient is sitting upright in bedside chair. In no acute distress. Morbidly obese. Significant edema on exam up to abdomen. Afebrile. Alert and oriented x 4. Spoke with Dr. Gomez on night of admission. Patient diuresing well with spironolactone and bumetanide. Creatinine stable at 0.80. Albumin remains low at 2.4. The patient reports no abdominal pain. He does use some alcohol recently. He has used NSAIDs occasionally. He has never received treatment for his hepatitis C. HCV quantitation is back. I do not see that genotype was tested. Patient was given vitamin K with some improvement of coagulation with PT 15.8 and INR 1.47 down from admission of 17.3 and 1.62. The patient did have CT scan yesterday showing some ascites as well as signs of cirrhosis and portal hypertension. The patient's total bilirubin is 3.2 with AST 129, ALT 43 and alkaline phosphatase 234. Hospital Course Hospital Course Hospital Course: 38-year-old male with decompensated cirrhosis. Presents with anasarca and dyspnea. Workup in the ER concerning for volume overload. Discussed case with ER physician, request admission for diuresis and further management of his cirrhosis. #Decompensated cirrhosis #Active Hepatitis C infection #Anasarca #Thrombocytopenia - MELD 17, FIB4 = 9.6, INR 1.6. - Initial Labs relatively stable with platelets 76, hemoglobin 12.4, white count 4.3. - Liver function showing a positive trend with bilirubin 3.0, AST 117, ALT 41. - AFP within normal limits at 6.1. Hep C RNA positive. Genotype pending. - Anasarca improved with Bumex 2mg BID and spironolactone 100mg daily. Discharged with this regimen. - Continue Lactulose 20mg daily, can be uptitrated for goal 2-3 BMs. #Hepatitis C infection - HCV quant 2650. - Discussed case at length with GI, recommend initiating treatment for Hepatitis C. - Discharge with sofosbuvir-velpatasvir 400-100 mg daily, ribavirin 600 mg BID #Opioid use disorder - Reports history of IV drug use. Has not used in 11 years. Off and on Suboxone. Having mild withdrawal symptoms with tachycardia. Last used Suboxone day before admission with half tablet. Tolerating 8 mg / 2 mg Suboxone daily. Discharged with this regimen. - manpower development specialist consulted, Anticipate referral to outpatient treatment at discharge. #Morbid obesity complicates all aspects of his care #Tobacco use disorder - Nicotine patch 21 mg daily. Provided prescription. Exam Data for Last 24 hours Vital signs and Labs for Last 24 Hours: Temp Pulse Resp BP Pulse Ox O2 Del Method 98 F 115 H 16 146/76 H 94 L Room Air 10/05/24 12:00 10/05/24 12:00 10/05/24 12:00 10/05/24 12:00 10/05/24 12:00 10/05/24 12:00 Laboratory Results - last 24 hr 10/05/24 05:44: WBC 4.1 L, RBC 3.61 L, Hgb 12.4 L, Hct 37.1 L, MCV 102.7 H, MCH 34.5 H, MCHC 33.6, RDW 16.5, Plt Count 80 L, MPV 8.3, Neut % (Auto) 61.2, Lymph % (Auto) 26.5, Cascade % (Auto) 10.3 H, Eos % (Auto) 1.2, Baso % (Auto) 0.7, Neut # (Auto) 2.5, Lymph # (Auto) 1.1, Cascade # (Auto) 0.4, Eos # (Auto) 0.1, Baso # (Auto) 0.0, Sodium 133 L, Potassium 3.5, Chloride 94 L, Carbon Dioxide 37 H, Anion Gap 5.5, BUN 8 L, Creatinine 0.80, Estimated Creat Clear 136, Estimated GFR 108, Est GFR ( Amer) 130, Glucose 100, Calcium 7.9 L, Magnesium 1.8, Total Bilirubin 3.0 H, AST 117 H, ALT 41, Alkaline Phosphatase 244 H, Total Protein 6.7, Albumin 2.4 L, Globulin 4.3 H, Albumin/Globulin Ratio 0.6 L I & O for Last 24 hours: Intake & Output 10/02/24 10/03/24 10/04/24 10/05/24 23:59 23:59 23:59 23:59 Intake Total 1490 / 1670 580 / 880 1420 / 1420 360 / 360 Output Total 2850 / 3050 3550 / 3550 3620 / 3620 2350 / 2350 Balance -1360 / -1380 -2970 / -2670 -2200 / -2200 -1989 / Weight 187.969 kg 185.202 kg 184 kg 182.389 kg Constitutional Constitutional: no acute distress and obese *Routine HEENT Exam Head: Present normocephalic Eye: Present EOMI and PERRL ENT: Present mucous membranes moist *Routine Neck Exam Neck: Present supple; Absent lymphadenopathy *Routine Respiratory Exam Respiratory: Present CTA bilaterally *Routine Cardiovascular Exam Cardiovascular: Present RRR *Routine Abdominal Exam Abdominal: Present soft, normoactive bowel sounds and distended; Absent tenderness *Routine Extremities Exam Extremities: Present edema; Absent cyanosis or clubbing Comments: Lower extremity pitting edema 2+. *Routine Skin Exam Skin: Present warm; Absent rash *Routine Neurological Exam Neurological: Present alert and oriented X3 Results Data Completed and Pending Labs on day of discharge: Labs from last 24 hours 10/05/24 05:44 WBC 4.1 L RBC 3.61 L Hgb 12.4 L Hct 37.1 L MCV 102.7 H MCH 34.5 H MCHC 33.6 RDW 16.5 Plt Count 80 L MPV 8.3 Neut % (Auto) 61.2 Lymph % (Auto) 26.5 Cascade % (Auto) 10.3 H Eos % (Auto) 1.2 Baso % (Auto) 0.7 Neut # (Auto) 2.5 Lymph # (Auto) 1.1 Cascade # (Auto) 0.4 Eos # (Auto) 0.1 Baso # (Auto) 0.0 Sodium 133 L Potassium 3.5 Chloride 94 L Carbon Dioxide 37 H Anion Gap 5.5 BUN 8 L Creatinine 0.80 Estimated Creat Clear 136 Estimated GFR 108 Est GFR ( Amer) 130 Glucose 100 Calcium 7.9 L Magnesium 1.8 Total Bilirubin 3.0 H AST 117 H ALT 41 Alkaline Phosphatase 244 H Total Protein 6.7 Albumin 2.4 L Globulin 4.3 H Albumin/Globulin Ratio 0.6 L DS: Diagnosis Discharge Diagnosis (1) Portal hypertension: Status: Acute Code(s): K76.6 - Portal hypertension (2) Ascites: Status: Acute Code(s): R18.8 - Other ascites (3) 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): Status: Acute Code(s): B19.20 - Unspecified viral hepatitis C without hepatic coma; K74.69 - Other cirrhosis of liver (4) Chronic hepatitis C virus infection: Status: Acute Code(s): B18.2 - Chronic viral hepatitis C (5) Anasarca: Status: Acute Code(s): R60.1 - Generalized edema Meds Home Medications and Allergies Home Medications ?Medication ?Instructions ?Recorded ?Confirmed ?Type bumetanide 2 mg tablet 2 mg PO BID #60 tabs 10/05/24 Rx buprenorphine 8 mg-naloxone 2 mg 1 tab sublingual DAILY 14 days #14 10/05/24 Rx sublingual tablet tabs lactulose 20 gram/30 mL oral 20 g (30 mL) PO DAILY 30 days #900 10/05/24 Rx solution mL nicotine 21 mg/24 hr daily 21 mg transdermal DAILYP PRN 10/05/24 Rx transdermal patch Nicotine Cravings 30 days #28 ea pantoprazole 40 mg tablet,delayed 40 mg PO HS 30 days #30 tabs 10/05/24 Rx release ribavirin 200 mg tablet 600 mg (3 x 200 mg) PO BID 12 10/05/24 Rx weeks #504 tabs sofosbuvir 400 mg-velpatasvir 100 1 tab PO DAILY 12 weeks #84 tabs 10/05/24 Rx mg tablet spironolactone 100 mg tablet 100 mg PO DAILY #30 tabs 10/05/24 Rx New Prescriptions to Start Prescriptions: bumetanide Ross,Josemanuel buprenorphine-naloxone Ross,Josemanuel lactulose Pidakazoey,Josemanuel nicotine P[place]ala,Josemanuel pantoprazole P[place],Josemanuel ribavirin [place]ey,Josemanuel sofosbuvir-velpatasvir Ross,Josemanuel spironolactone Ross,Josemanuel Allergies Allergy/AdvReac Type Severity Reaction Status Date / Time No Known Allergies Allergy Verified 10/30/19 16:38 Discharge Plan Disposition Patient Disposition: Home, Self-Care Condition: Fair Discharge Order Discharge Orders: Discharge Order (Routine); Ordered 10/05/24 Ordered By: Josemanuel Hawkins Follow up Plan Follow up with: Janelle Lane [Primary Care Provider] - 10/11/24 9:00 am Mervat Baldwin APRN [Nurse Practitioner] - 10/12/24 9:15 am Prescriptions/Medication Reconciliation: New bumetanide 2 mg tablet 2 mg PO BID Qty: 60 0RF spironolactone 100 mg tablet 100 mg PO DAILY Qty: 30 0RF buprenorphine-naloxone 8-2 mg Tablet, Sublingual 1 tab sublingual DAILY 14 Days Qty: 14 0RF lactulose 20 gram/30 mL Solution 20 g PO DAILY 30 Days Qty: 900 0RF pantoprazole 40 mg Tablet,Delayed Release (Dr/Ec) 40 mg PO HS 30 Days Qty: 30 0RF nicotine 21 mg/24 hr Patch 24 Hour 21 mg transdermal DAILYP PRN (Reason: Nicotine Cravings) 30 Days Qty: 28 0RF sofosbuvir-velpatasvir 400-100 mg tablet 1 tab PO DAILY 84 Days Qty: 84 0RF ribavirin 200 mg tablet 600 mg PO BID 84 Days Qty: 504 0RF Rx Instructions: must administer with food, preferably a high-fat meal Problem Reconciliation Problems Reviewed?: Yes Patient Discharge Instructions ACTIVITY: Continue current activity DIET: continue same diet Patient Instructions: DI for Cirrhosis Print Language: Tongan Providers Primary Care Provider: Janelle Lane Admit Provider: Pablito Gomez Attending Provider: Pabilto Gomez
--- NOTE | 2024-10-05 14:37 | SW/DCPLANNER ---
Called [facility] [place] and made an appointment on 10/12/24 @ 11A.M. Told patient what they asked him to bring to the appointment. Portia Rodarte
[2024-10-08 22:19] LABS: Hepatitis C Genotype 1a (.)
--- NOTE | 2024-10-11 12:09 | SW/DCPLANNER ---
Spoke with patient on the phone. Patient stated that he is doing well since his discharge and that he missed his appointment today with bethany nunez and he is aware of his appointment tomorrow. Patient stated that he was not able to get his medicine picked up because of a letter stating he needs bloodwork done for his hepB. Patient atated he has no concerns or questions at this time. Portia Rodarte
== END 2024-10-05 15:57 | disposition home or self-care (01) | DRG 442 ==
LOC: ER 15:06 → 2ND 15:48
PROVIDERS: Internal Medicine Gastroenterology; Admitting Provider Internal Medicine Adolescent Medicine; Emergency Provider Student in an Organized Health Care Education/Training Program; PCP Nurse Practitioner Family; Visit Provider Internal Medicine Adolescent Medicine
DX: B18.2 Chronic viral hepatitis C (principal); R18.8 Other ascites; Z68.43 Body mass index [BMI] 50.0-59.9, adult; K74.60 Unspecified cirrhosis of liver; B19.20 Unspecified viral hepatitis C without hepatic coma; D69.6 Thrombocytopenia, unspecified; E66.01 Morbid (severe) obesity due to excess calories; F17.210 Nicotine dependence, cigarettes, uncomplicated; E88.09 Other disorders of plasma-protein metabolism, not elsewhere classified
CPT/HCPCS: 36415; 71045; 74170; 80053; 80061; 81001; 82105; 82140; 83735; 83880; 84443; 84484; 85025; 85610; 87389; 87522; 87902; 93005; 93306; 99291; J0574; J1939; J3430; J3475; Q9967

== ENCOUNTER 2024-10-12 09:50 | Outpatient (CLI) | payer MEDICAID, SELFPAY ==
[2024-10-12 10:18] LABS: Basophils % 0.9 % (0.1-2.0); Eosinophils # 0.1 K/mm3 (0.0-0.4); Eosinophils % 1.4 % (0.1-12.0); Hematocrit 38.6 % (42.0-52.0); Hemoglobin 12.9 g/dL (14.1-18.0); Lymphocytes # 1.3 K/mm3 (0.7-4.5); Mean Corpuscular HGB Conc 33.3 g/dL (31.8-35.4); Mean Corpuscular Hemoglobin 33.7 pg (27.0-31.2); Mean Platelet Volume 7.7 fl (7.4-10.4); Monocytes # 0.5 K/mm3 (0.1-1.0); Monocytes % 10.3 % (1.7-9.3); Neutrophils # 2.5 K/mm3 (1.8-7.8); Neutrophils % 58.4 % (37.0-80.0); Platelet Count 114 K/mm3 (142-424); Red Blood Count 3.82 M/mm3 (4.60-6.20); Red Cell Distribution Width 15.2 % (11.5-17.5); White Blood Count 4.4 K/mm3 (4.8-10.8)
[2024-10-12 10:33] LABS: INR 1.44 (0.9-1.1); Prothrombin Time 15.6 seconds (10.1-12.5)
[2024-10-12 10:55] LABS: Alanine Aminotransferase 49 U/L (12-78); Albumin Level 2.7 g/dl (3.5-5.0); Albumin/Globulin Ratio 0.6 (1.1-1.8); Alkaline Phosphatase 152 U/L (38-126); Anion Gap 7.4 mEq/L (5-15); Aspartate Amino Transferase 119 U/L (17-59); Bilirubin,Total 3.9 mg/dl (0.2-1.3); Blood Urea Nitrogen 8 mg/dl (9-20); Calcium 8.1 mg/dl (8.4-10.2); Carbon Dioxide 33 mmol/L (22.0-30.0); Chloride 93 mmol/L (98-107); Estimated Glomerular Filt Rate 126 ml/min (>60); GFR (African American) 152 ML/MIN (>60); Globulin 4.7 g/dL (1.3-3.2); Glucose 103 mg/dl (74-100); Potassium 3.4 mmoL/L (3.5-5.1); Sodium 130 mmol/L (136-145); Total Protein,Serum 7.4 g/dl (6.3-8.2)
[2024-10-13 07:16] LABS: Hep B Core Ab, Total Negative (Negative)
[2024-10-13 23:11] LABS: HBV IU/mL HBV DNA not detected IU/mL (.)
[2024-10-14 11:21] LABS: Hepatitis B Surface Antigen Negative
== END 2024-10-12 23:59 | disposition home or self-care (01) ==
LOC: LAB 09:50
PROVIDERS: PCP Nurse Practitioner Family; Visit Provider Nurse Practitioner Family
DX: B18.2 Chronic viral hepatitis C (principal); R18.8 Other ascites; D69.6 Thrombocytopenia, unspecified; K76.6 Portal hypertension; K74.60 Unspecified cirrhosis of liver
CPT/HCPCS: 36415; 80053; 85025; 85610; 86704; 87340; 87517

== ENCOUNTER 2025-01-17 15:11 | Outpatient (CLI) | payer MEDICAID, SELFPAY ==
[2025-01-17 15:58] LABS: Basophils % 0.9 % (0.1-2.0); Eosinophils % 1.7 % (0.1-12.0); Hematocrit 34.2 % (42.0-52.0); Hemoglobin 11.5 g/dL (14.1-18.0); Lymphocytes # 0.8 K/mm3 (0.7-4.5); Mean Corpuscular HGB Conc 33.6 g/dL (31.8-35.4); Mean Corpuscular Hemoglobin 31.5 pg (27.0-31.2); Mean Corpuscular Volume 93.7 fl (80-94); Mean Platelet Volume 9.5 fl (7.4-10.4); Monocytes # 0.3 K/mm3 (0.1-1.0); Monocytes % 13.9 % (1.7-9.3); Neutrophils # 1.2 K/mm3 (1.8-7.8); Neutrophils % 50.5 % (37.0-80.0); Platelet Count 82 K/mm3 (142-424); Red Blood Count 3.65 M/mm3 (4.60-6.20); Red Cell Distribution Width 12.5 % (11.5-17.5); White Blood Count 2.3 K/mm3 (4.8-10.8)
[2025-01-17 18:02] LABS: Albumin Level 3.4 g/dl (3.5-5.0); Chloride 104 mmol/L (98-107); Potassium 4.3 mmoL/L (3.5-5.1); Sodium 136 mmol/L (136-145)
[2025-01-17 18:05] LABS: Alanine Aminotransferase 29 U/L (12-78); Albumin/Globulin Ratio 0.9 (1.1-1.8); Alkaline Phosphatase 205 U/L (38-126); Anion Gap 8.3 mEq/L (5-15); Aspartate Amino Transferase 54 U/L (17-59); Bilirubin,Total 1.2 mg/dl (0.2-1.3); Blood Urea Nitrogen 11 mg/dl (9-20); Calcium 8.9 mg/dl (8.4-10.2); Carbon Dioxide 28 mmol/L (22.0-30.0); Estimated Glomerular Filt Rate 107 ml/min (>60); GFR (African American) 130 ML/MIN (>60); Globulin 3.9 g/dL (1.3-3.2); Glucose 93 mg/dl (74-100); Total Protein,Serum 7.3 g/dl (6.3-8.2)
[2025-01-18 09:12] LABS: Hepatitis C Antibody Reactive (Non Reactive)
== END 2025-01-17 23:59 | disposition home or self-care (01) ==
LOC: LAB 15:12
PROVIDERS: PCP Nurse Practitioner Family; Visit Provider Nurse Practitioner Family
DX: B18.2 Chronic viral hepatitis C (principal)
CPT/HCPCS: 36415; 80053; 85025; 87380; 87522